=== PATIENT | female | born 1960 | race Caucasian/White ===

== ENCOUNTER 2017-09-10 08:56 | Observation (INO) | payer SELFPAY ==
[~2017-09-10] VITALS: Ht 170.2 cm; Wt 92.7 kg
[~2017-09-10 08:56] MED LIST: ASPI81TA82 PO; MECL25 PO; METO50TA PO; PLAV75TA PO; ZOCO40TA PO
[2017-09-10 09:00] VITALS: BP 208/99; PULSE 77; RESP 18; TEMP 98.5; O2SAT 99
[2017-09-10] MEDS ORDERED: NITROGLYCERIN 2% OINT 1 GM PACKET TOP ONE (09:15)
[2017-09-10] MEDS ORDERED: SODIUM CHLORIDE 0.9% FLUSH 10 ML FLUSH IVF PRN (09:15)
--- NOTE | 2017-09-10 09:15 | PD ---
HPI Chief Complaint: Chest Pain Time Seen by Provider: 09:06 Travel History International Travel<30 days: No Contact w/Intl Traveler<30days: No Traveled to known affect area: No History of Present Illness HPI This 57-year-old female is complaining of left-sided chest pain which goes down her left arm. He feels short of breath at times. She has a history of coronary artery bypass grafting in 2005 at [place]. She has had occasional chest pain since. She was at work last night and said she did not feel well she was feeling a little bit short of breath. She went home and had some pain in the left side of the chest which was found in left arm. Pain is aggravated by certain movements. She does take aspirin on a regular basis and also takes Plavix. She does not currently see a gold frame assembler. She stopped smoking about 2 years ago she was given nitroglycerin by paramedics which seemed to help the pain a bit PFSH Past Medical History Hx Anticoagulant Therapy: Yes Arthritis: No Asthma: No Blood Disorders: No Anxiety: Yes Depression: No Heart Rhythm Problems: No Cancer: No Cardiac Catheterization: Yes Cardiovascular Problems: Yes (BYPASS X4, OPEN HEART 2005) High Cholesterol: Yes Chemotherapy: No Chest Pain: Yes Congestive Heart Failure: No COPD: No Cerebrovascular Accident: Yes (TIA's) Coronary Artery Disease: Yes Diabetes: Yes Patient Takes Glucophage: No Diminished Hearing: No Endocrine: Yes Gastrointestinal Disorders: Yes Genitourinary: Yes Headaches: No Hypertension: Yes Immune Disorder: No Musculoskeletal: Yes Neurologic: No Psychiatric: No Reproductive: No Respiratory: No Immunizations Current: Yes Migraines: No Myocardial Infarction: No Radiation Therapy: No Seizures: No Sleep Apnea: No Tetanus Vaccination: > 5 Years Influenza Vaccination: Yes ?: Not Menopausal: Yes : 1 Para: 1 Past Surgical History AICD: No Arteriovenous Shunt: No Cardiac Surgery: Yes (CAGB 2005) Coronary Artery Bypass Graft: Yes Ear Surgery: No Endocrine Surgery: No Eye Surgery: No Genitourinary Surgery: No Gynecologic Surgery: No Insulin Pump: No Joint Replacement: No Oral Surgery: No Pacemaker: No Thoracic Surgery: No Other Surgery: Yes (CABG IN DECEMBER 2005.) Family History Family Myocardial Infarction: Yes (Father) Social History Alcohol Use: No Tobacco Use: No Substance Use: No Allergies-Medications (Allergen,Severity, Reaction): Coded Allergies: codeine (Unverified Allergy, Severe, VOMITING, 09/10/17) iodine (Unverified Allergy, Severe, NAUSEA/VOMITING, 09/10/17) patient states does not have a allergy to Iodine -11/16/15 Adore Bruce rn potassium iodide (Unverified Allergy, Severe, NAUSEA/VOMITING, 09/10/17) patient states does not have a allergy to Iodine -11/16/15 Adore Bruce rn povidone-iodine (Unverified Allergy, Severe, NAUSEA/VOMITING, 09/10/17) patient states does not have a allergy to Iodine -11/16/15 Adore Bruce rn shellfish derived (Unverified Allergy, Severe, N/V, 09/10/17) sodium iodide (Unverified Allergy, Severe, NAUSEA/VOMITING, 09/10/17) patient states does not have a allergy to Iodine -11/16/15 Adore Bruce rn sodium iodide (Unverified Allergy, Severe, NAUSEA/VOMITING, 09/10/17) patient states does not have a allergy to Iodine -11/16/15 Adore Bruce rn Reported Meds & Prescriptions Reported Meds & Active Scripts Active Antivert (Meclizine HCl) 25 Mg Tab 25 Mg PO Q8H PRN 10 Days Review of Systems General / Constitutional: No: Fever, Chills Eyes: No: Diploplia, Blurred Vision HENT: No: Headaches, Lightheadedness Cardiovascular: Positive: Chest Pain or Discomfort Respiratory: Positive: Shortness of Breath Gastrointestinal: No: Nausea, Vomiting Genitourinary: No: Urgency Musculoskeletal: No: Myalgias, Arthralgias Neurologic: No: Weakness Psychiatric: No: Anxiety Hematologic/Lymphatic: No: Easy Bruising Physical Exam Narrative GENERAL: Well-developed female SKIN: Focused skin assessment warm/dry. HEAD: Atraumatic. Normocephalic. EYES: Pupils equal and round. No scleral icterus. No injection or drainage. ENT: No nasal bleeding or discharge. Mucous membranes pink and moist. NECK: Trachea midline. No JVD. CARDIOVASCULAR: Regular rate and rhythm. No murmur appreciated. Some left- sided chest wall tenderness which she says she always has RESPIRATORY: No accessory muscle use. Clear to auscultation. Breath sounds equal bilaterally. GASTROINTESTINAL: Abdomen soft, non-tender, nondistended. Hepatic and splenic margins not palpable. MUSCULOSKELETAL: No obvious deformities. No clubbing. No cyanosis. No edema. NEUROLOGICAL: Awake and alert. No obvious cranial nerve deficits. Motor grossly within normal limits. Normal speech. PSYCHIATRIC: Appropriate mood and affect; insight and judgment normal. Data Data Last Documented VS Vital Signs Date Time Temp Pulse Resp B/P (MAP) Pulse Ox O2 Delivery O2 Flow Rate FiO2 09/10/17 09:45 78 14 140/58 (85) 98 Room Air 09/10/17 09:00 98.5 Orders Orders Electrocardiogram (09/10/17:12) Basic Metabolic Panel (Bmp) (09/10/17 09:12) Ckmb (Isoenzyme) Profile (09/10/17 09:12) Complete Blood Count With Diff (09/10/17:12) Magnesium (Mg) (09/10/17:12) Prothrombin Time / Inr (Pt) (09/10/17:12) Act Partial Throm Time (Ptt) (09/10/17 09:12) Troponin I (09/10/17 09:12) Chest, Single Ap (09/10/17 09:12) Ecg Monitoring (09/10/17 09:12) Iv Access Insert/Monitor (09/10/17:12) Oximetry (09/10/17 09:12) Nitroglycerin 2% Oint (Nitroglycerin 2% (09/10/17 09:15) Sodium Chloride 0.9% Flush (Ns Flush) (09/10/17 09:15) CKMB (09/10/17 09:02) CKMB% (09/10/17 09:02) Place In Observation (09/10/17 10:35) Vital Signs (Adult) Q4H (09/10/17 10:35) Cardiac Rhythm .As Directed (09/10/17 10:35) Notify Dr: Other .PRN (09/10/17 10:35) Notify . Parameters (09/10/17 10:35) Resp Oxygen Nasal Cannula (09/10/17 ) Diet Npo (09/10/17 Lunch) Ckmb (Isoenzyme) Profile (09/10/17 12:00) Ckmb (Isoenzyme) Profile (09/10/17 15:00) Troponin I (09/10/17 12:00) Troponin I (09/10/17 15:00) Electrocardiogram (09/10/17 12:00) Electrocardiogram (09/10/17 15:00) Sodium Chloride 0.9% Flush (Ns Flush) (09/10/17 10:45) Sodium Chloride 0.9% Flush (Ns Flush) (09/10/17 21:00) Acetaminophen (Tylenol) (09/10/17 10:45) Ondansetron Inj (Zofran Inj) (09/10/17 10:45) Canvas Worker / Telemetry SERGIO.Q8H (09/10/17 10:35) Vte Prophylaxis Not Indicated (09/10/17 10:35) Scd Bilateral/Knee High SERGIO.BID (09/10/17 10:35) Admit Order (Ed Use Only) (09/10/17 10:34) Labs Laboratory Tests Test 09/10/17 09:02 White Blood Count 11.7 TH/MM3 Red Blood Count 5.08 MIL/MM3 Hemoglobin 14.4 GM/DL Hematocrit 44.4 % Mean Corpuscular Volume 87.3 FL Mean Corpuscular Hemoglobin 28.3 PG Mean Corpuscular Hemoglobin Concent 32.4 % Red Cell Distribution Width 12.3 % Platelet Count 352 TH/MM3 Mean Platelet Volume 9.0 FL Neutrophils (%) (Auto) 58.6 % Lymphocytes (%) (Auto) 32.6 % Monocytes (%) (Auto) 5.0 % Eosinophils (%) (Auto) 3.1 % Basophils (%) (Auto) 0.7 % Neutrophils # (Auto) 6.8 TH/MM3 Lymphocytes # (Auto) 3.8 TH/MM3 Monocytes # (Auto) 0.6 TH/MM3 Eosinophils # (Auto) 0.4 TH/MM3 Basophils # (Auto) 0.1 TH/MM3 CBC Comment DIFF FINAL Differential Comment Prothrombin Time 10.1 SEC Prothromb Time International Ratio 1.0 RATIO Activated Partial Thromboplast Time 23.3 SEC Blood Urea Nitrogen 20 MG/DL Creatinine 0.61 MG/DL Random Glucose 245 MG/DL Calcium Level 8.9 MG/DL Magnesium Level 1.6 MG/DL Sodium Level 138 MEQ/L Potassium Level 3.6 MEQ/L Chloride Level 102 MEQ/L Carbon Dioxide Level 27.8 MEQ/L Anion Gap 8 MEQ/L Estimat Glomerular Filtration Rate 101 ML/MIN Total Creatine Kinase 134 U/L Creatine Kinase MB 2.6 NG/ML Troponin I LESS THAN 0.02 NG/ML MDM Medical Decision Making Medical Screen Exam Complete: Yes Emergency Medical Condition: Yes Medical Record Reviewed: Yes Differential Diagnosis Differential includes chest wall pain, coronary artery disease, GERD Narrative Course EKG is unchanged from previous tracings. Troponin is normal. She has been given a half-inch of nitro and reports that she is feeling well. She will be admitted to chest pain center Filipe Tovar MD Sep 10, 2017 09:15
[2017-09-10 09:22] LABS: AUTOMATED NEUTROPHIL # 6.8 TH/MM3 (1.8-7.7); BASOPHIL # 0.1 TH/MM3 (0-0.2); BASOPHIL % 0.7 % (0.0-2.0); EOSINOPHIL # 0.4 TH/MM3 (0-0.4); EOSINOPHIL % 3.1 % (0.0-4.0); HEMATOCRIT 44.4 % (35.0-46.0); HEMOGLOBIN 14.4 GM/DL (11.6-15.3); LYMPH % 32.6 % (9.0-44.0); LYMPHOCYTE # 3.8 TH/MM3 (1.0-4.8); MEAN CELL VOLUME 87.3 FL (80.0-100.0); MEAN CORPUSCULAR HEMOGLOBIN 28.3 PG (27.0-34.0); MEAN CORPUSCULAR HGB CONC 32.4 % (32.0-36.0); MONOCYTE # 0.6 TH/MM3 (0-0.9); NEUT % 58.6 % (16.0-70.0); PLATELET COUNT 352 TH/MM3 (150-450); RED BLOOD COUNT 5.08 MIL/MM3 (4.00-5.30); RED CELL DISTRIBUTION WIDTH 12.3 % (11.6-17.2); WHITE BLOOD COUNT 11.7 TH/MM3 (4.0-11.0)
[2017-09-10 09:33] LABS: PROTHROMBIN TIME - PATIENT 10.1 SEC (9.8-11.6)
[2017-09-10 09:45] VITALS: BP 140/58; PULSE 78; RESP 14; O2SAT 98
[2017-09-10 09:53] LABS: BICARBONATE 27.8 MEQ/L (21.0-32.0); BLOOD UREA NITROGEN 20 MG/DL (7-18); CALCIUM 8.9 MG/DL (8.5-10.1); GLUCOSE,RANDOM 245 MG/DL (74-106); MAGNESIUM 1.6 MG/DL (1.5-2.5)
[2017-09-10 09:57] LABS: CREATININE 0.61 MG/DL (0.50-1.00); GLOMERULAR FILTRATION RATE 101 ML/MIN (>89)
[2017-09-10 09:58] LABS: TROPONIN I LESS THAN 0.02 NG/ML (0.02-0.05)
[2017-09-10 10:02] LABS: CHLORIDE 102 MEQ/L (98-107); SODIUM (NA) 138 MEQ/L (136-145)
--- NOTE | 2017-09-10 10:14 | RADRPT ---
EXAM DATE/TIME: 09/10/2017 09:31 [facility] COMPARISON: CHEST SINGLE AP, November 16, 2015, 8:18. INDICATIONS : Chest pain. MEDICAL HISTORY : Hypertension. Diabetes mellitus type 2. SURGICAL HISTORY : CABG. ENCOUNTER: Initial ACUITY: 2 days PAIN SCORE: 8/10 LOCATION: Left chest FINDINGS: No new focal pleural or parenchymal opacities. Stable median sternotomy wires in place. Cardiomediast inal contours are within normal limits. Remainder of the exam is unchanged. CONCLUSION: 1. No acute abnormality or significant interval change. Benigno Carballo MD on September 10, 2017 at 10:11 Board Certified Radiologist. This report was verified electronically.
[2017-09-10] MEDS ORDERED: REGADENOSON INJ 0.4 MG/5 ML SYR IV ONE (10:37)
[2017-09-10] MEDS ORDERED: ACETAMINOPHEN 500 MG CPLT PO PRN (10:45)
[2017-09-10] MEDS ORDERED: SODIUM CHLORIDE 0.9% FLUSH 10 ML FLUSH IV FLUSH PRN (10:45)
[2017-09-10] MEDS ORDERED: ONDANSETRON HCL 4 MG/2 ML VIAL IV PUSH PRN (10:45)
--- NOTE | 2017-09-10 11:38 | HHI.HP ---
HPI Service [facility] Primary Care Physician Cedrick Rodríguez MD (Paul) Admission Diagnosis CHEST PAIN Diagnoses: (1) Chest pain Chief Complaint: Chest pain Travel History International Travel<30 Days: No Contact w/Intl Traveler <30 Da: No Traveled to Known Affected Are: No History of Present Illness This is a pleasant 57-year-old female patient with a known medical history of CAD and history of quadruple bypass, diabetes and hypertension who presented to the ED with complaints of chest pain. 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 She states that over the past week she has been having intermittent chest heaviness and tightness with occasional shooting pains down her left arm. Last evening while at work she did develop a left-sided chest pain once again with associated shortness of breath, was tight in nature and lasted several minutes. Patient denies any known alleviating factors, states that the pain was worse with activity. Patient denies any associated nausea, vomiting or diaphoresis. She does state that over the past week she has been using a heating pad, aspirin and using additional Plavix to help the pain with minimal relief. She denies any recent illness including fever, chills, cough, abdominal pain, nausea, vomiting, diarrhea dysuria. Patient did undergo a CABG in 2005 and was following with Dr. Garner for several years but has not seen her in the office for 2 years now. Patient states her last stress test was 2 years ago and was reportedly negative. She denies any current tobacco use , states she quit 2 years ago. Patient does have a strong familial history of cardiovascular disease. Review of Systems Constitutional: DENIES: Fatigue, Fever, Chills Eyes: DENIES: Blurred vision, Diplopia Respiratory: COMPLAINS OF: Shortness of breath, DENIES: Cough, Sputum production Cardiovascular: COMPLAINS OF: Chest pain, Palpitations Gastrointestinal: DENIES: Abdominal pain, Black stools, Bloody stools, Constipation, Diarrhea, Nausea, Vomiting Psychiatric: COMPLAINS OF: Anxiety Except as stated in HPI: all other systems reviewed are Neg Past Family Social History Past Medical History CAD with history of CABG Hypertension Diabetes History of TIA Anxiety and depression Past Surgical History Quadruple bypass in 2005 Unspecified hand surgery Reported Medications Active Active Prescriptions or Reported Medications Unobtainable Allergies: Coded Allergies: codeine (Unverified Allergy, Severe, VOMITING, 09/10/17) iodine (Unverified Allergy, Severe, NAUSEA/VOMITING, 09/10/17) patient states does not have a allergy to Iodine -11/16/15 Adore Bruce rn potassium iodide (Unverified Allergy, Severe, NAUSEA/VOMITING, 09/10/17) patient states does not have a allergy to Iodine -11/16/15 Adore Bruce rn povidone-iodine (Unverified Allergy, Severe, NAUSEA/VOMITING, 09/10/17) patient states does not have a allergy to Iodine -11/16/15 Adore Bruce rn shellfish derived (Unverified Allergy, Severe, N/V, 09/10/17) sodium iodide (Unverified Allergy, Severe, NAUSEA/VOMITING, 09/10/17) patient states does not have a allergy to Iodine -11/16/15 Adore Bruce rn sodium iodide (Unverified Allergy, Severe, NAUSEA/VOMITING, 09/10/17) patient states does not have a allergy to Iodine -11/16/15 Adore Bruce rn Active Ordered Medications Current Medications Medications (Trade) Dose Ordered Sig/David Route Start Time Stop Time Status Last Admin (NS Flush) 2 ml UNSCH PRN IV FLUSH 09/10/17 10:45 (NS Flush) 2 ml BID IV FLUSH 09/10/17 21:00 (Tylenol) 500 mg Q4H PRN PO 09/10/17 10:45 (Zofran Inj) 4 mg Q6H PRN IV PUSH 09/10/17 10:45 Family History Family history significant for cardiovascular disease. Patient had a CABG and of a stroke. Mother had a pacemaker. And brother had a history of CA and at the age of 4040 years old. Social History Patient denies any current tobacco use, states that she did quit 2 years ago. Denies any alcohol or illicit drug use. Physical Exam Vital Signs Vital Signs Date Time Temp Pulse Resp B/P (MAP) Pulse Ox O2 Delivery O2 Flow Rate FiO2 09/10/17 09:45 78 14 140/58 (85) 98 Room Air 09/10/17 09:00 98.5 77 18 208/99 (135) 99 09/10/17 09:00 99 Room Air Physical Exam GENERAL: Well-developed, obese female patient in NAD. SKIN: Warm and dry. No rash. HEAD: Normocephalic. Atraumatic. EYES: Pupils equal and round. No scleral icterus. No injection or drainage. ENT: No nasal bleeding or discharge. Mucous membranes pink and moist. NECK: Supple. Trachea midline. CARDIOVASCULAR: Regular rate and rhythm. S1, S2 noted. No murmur appreciated. Some mild chest pain to palpation RESPIRATORY: No accessory muscle use. Clear to auscultation. Breath sounds equal bilaterally. GASTROINTESTINAL: Abdomen soft, non-tender, nondistended. Normoactive bowel sounds x4. MUSCULOSKELETAL: No obvious deformities. Extremities without clubbing, cyanosis , or edema. NEUROLOGICAL: Awake and alert. No obvious cranial nerve deficits. Motor grossly within normal limits. 5/5 muscle strength in bilateral upper and lower extremities. Normal speech. PSYCHIATRIC: Appropriate mood and affect; insight and judgment normal. Laboratory Laboratory Tests Test 09/10/17 09:02 White Blood Count 11.7 Red Blood Count 5.08 Hemoglobin 14.4 Hematocrit 44.4 Mean Corpuscular Volume 87.3 Mean Corpuscular Hemoglobin 28.3 Mean Corpuscular Hemoglobin Concent 32.4 Red Cell Distribution Width 12.3 Platelet Count 352 Mean Platelet Volume 9.0 Neutrophils (%) (Auto) 58.6 Lymphocytes (%) (Auto) 32.6 Monocytes (%) (Auto) 5.0 Eosinophils (%) (Auto) 3.1 Basophils (%) (Auto) 0.7 Neutrophils # (Auto) 6.8 Lymphocytes # (Auto) 3.8 Monocytes # (Auto) 0.6 Eosinophils # (Auto) 0.4 Basophils # (Auto) 0.1 CBC Comment DIFF FINAL Differential Comment Prothrombin Time 10.1 Prothromb Time International Ratio 1.0 Activated Partial Thromboplast Time 23.3 Blood Urea Nitrogen 20 Creatinine 0.61 Random Glucose 245 Calcium Level 8.9 Magnesium Level 1.6 Sodium Level 138 Potassium Level 3.6 Chloride Level 102 Carbon Dioxide Level 27.8 Anion Gap 8 Estimat Glomerular Filtration Rate 101 Total Creatine Kinase 134 Creatine Kinase MB 2.6 Troponin I LESS THAN 0.02 Result Diagram: 09/10/1790109/10/17901 Imaging Last Impressions Chest X-Ray 09/10/17911 Signed Impressions: Service Date/Time: Sunday, September 10, 2017 09:31 - CONCLUSION: 1. No acute abnormality or significant interval change. Benigno Carballo MD Septic Shock Reassessment Septic shock perfusion: reassessment completed Caprini VTE Risk Assessment Caprini VTE Risk Assessment: No/Low Risk (score <= 1) Caprini Risk Assessment Model Point Value = 1 Point Value = 2 Point Value = 3 Point Value = 5 Age 41-60 Minor surgery BMI > 25 kg/m2 Swollen legs Varicose veins or History of unexplained or recurrent spontaneous Oral contraceptives or hormone replacement Sepsis (< 1 month) Serious lung disease, including pneumonia (< 1 month) Abnormal pulmonary function Acute myocardial infarction Congestive heart failure (< 1 month) History of inflammatory bowel disease Medical patient at bed rest Age 61-74 Arthroscopic surgery Major open surgery (> 45 min) Laparoscopic surgery (> 45 min) Malignancy Confined to bed (> 72 hours) Immobilizing plaster cast Central venous access Age >= 75 History of VTE Family history of VTE Factor V Leiden Prothrombin [id number] Lupus anticoagulant Anticardiolipin antibodies Elevated serum homocysteine Heparin-induced thrombocytopenia Other congenital or acquired thrombophilia Stroke (< 1 month) Elective arthroplasty Hip, pelvis, or leg fracture Acute spinal cord injury (< 1 month) Prophylaxis Regimen Total Risk Factor Score Risk Level Prophylaxis Regimen 0-1 Low Early ambulation 2 Moderate Order ONE of the following: *Sequential Compression Device (SCD) *Heparin 5000 units SQ BID 3-4 Higher Order ONE of the following medications: *Heparin 5000 units SQ TID *Enoxaparin/Lovenox 40 mg SQ daily (WT < 150 kg, CrCl > 30 mL/min) *Enoxaparin/Lovenox 30 mg SQ daily (WT < 150 kg, CrCl > 10-29 mL/min) *Enoxaparin/Lovenox 30 mg SQ BID (WT < 150 kg, CrCl > 30 mL/min) AND/OR *Sequential Compression Device (SCD) 5 or more Highest Order ONE of the following medications: *Heparin 5000 units SQ TID (Preferred with Epidurals) *Enoxaparin/Lovenox 40 mg SQ daily (WT < 150 kg, CrCl > 30 mL/min) *Enoxaparin/Lovenox 30 mg SQ daily (WT < 150 kg, CrCl > 10-29 mL/min) *Enoxaparin/Lovenox 30 mg SQ BID (WT < 150 kg, CrCl > 30 mL/min) AND *Sequential Compression Device (SCD) Assessment and Plan Problem List: (1) Chest pain ICD Code: R07.9 - Chest pain Status: Acute (2) DM (diabetes mellitus) ICD Code: E11.9 - DM (diabetes mellitus) Status: Acute (3) CAD (coronary artery disease) ICD Code: I25.10 - CAD (coronary artery disease) Status: Acute (4) Hyperlipidemia ICD Code: E78.5 - Hyperlipidemia Status: Acute Assessment and Plan This is a pleasant 57-year-old female patient with a known medical history of CAD and history of quadruple bypass, diabetes and hypertension who presented to the ED with complaints of chest pain. 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 Chest pain rule out ACS versus musculoskeletal cause - Patient has been admitted to the observation chest pain center unit. - Serial EKGs and serial troponins have been ordered for ruling out ACS purposes. Initial troponin flat. Continue to monitor trend. - EKG reviewed showing sinus rhythm with first-degree AV block, no arrhythmias, no ST changes to indicate any ischemia. - Chest x-ray reviewed, no acute cardiopulmonary disease. CBC and BMP essentially unremarkable. - Chest pain has subsided, now a 1 out of 10 on pain scale. Nitroglycerin sublingual available. - Supplemental O2 as needed, patient comfortable on room air. Supportive care. - If ACS ruled out, patient will undergo a nuclear cardiac stress test to further rule out any ischemia. Patient is stable at this time and agreeable to the plan. Hypertension, chronic: Patient presented with significantly elevated blood pressure, systolic in the 200s. We will continue home medications. Nitroglycerin patch applied. Monitor BP trend. CAD with history of CABG: We will continue home medications when obtained from pharmacy. Patient has been on Plavix. Type 2 diabetes mellitus, chronic: Patient takes insulin at home. Will place on Accu-Chek before meals at bedtime, sliding scale, cover as needed. Random glucose is elevated. Patient states she does follow with PCP who is managing and her hemoglobin A1c has been elevated. DVT prophylaxis: SCDs. Patient underwent a cardiac nuclear stress test, results reviewed showing EF 70% . With no evidence of stress induced ischemia. Intact wall motion and thickening without hypokinetic or dyskinetic segments. Low Risk. Patient has been notified of results. Patient will be allowed to eat. Chest pain has resolved. Encouraged to return to ED if symptoms persist or worsen. Patient also encouraged to keep a blood pressure diary, she presented with elevated BP, may need adjustment in her medications. BP is stabilized upon DC. Encouraged to follow up with her PCP within 1 month. Patient is stable at this time and agreeable to the plan. Candi Clarke Sep 10, 2017 11:38
[2017-09-10] MEDS ORDERED: HYDR12.57 PO (12:23)
[2017-09-10] MEDS ORDERED: LISI-515 PO (12:23)
[2017-09-10] MEDS ORDERED: PLAV75TA29 PO (12:23)
[2017-09-10] MEDS ORDERED: GLIP5TAB8 PO (12:23)
[2017-09-10] MEDS ORDERED: METO25TA3 PO (12:23)
[2017-09-10] MEDS ORDERED: ASPI-516 CHEW (12:24)
[2017-09-10 12:35] LABS: TROPONIN I LESS THAN 0.02 NG/ML (0.02-0.05)
[2017-09-10 12:45] VITALS: BP 108/56; PULSE 68; RESP 16; TEMP 96.2; O2SAT 96
--- NOTE | 2017-09-10 15:04 | EKG ---
Date Performed: 09/10/2017 Time Performed: 11:57:53 PTAGE: 57 years EKG: Sinus rhythm WITH FIRST DEGREE AV BLOCK POSSIBLE RIGHT VENTRICULAR CONDUCTION DELAY NONSPECIFIC T-WAVE ABNORMALIT Y ABNORMAL ECG No significant change PREVIOUS TRACING : 09/10/2017 08.58 DOCTOR: Mainor Romero Interpretating Date/Time 09/10/2017 15:03:48
--- NOTE | 2017-09-10 15:05 | EKG ---
Date Performed: 09/10/2017 Time Performed: 08:58:40 PTAGE: 57 years EKG: Sinus rhythm WITH FIRST DEGREE AV BLOCK NONSPECIFIC T-WAVE ABNORMALITY ABNORMAL ECG No change PREVIOUS TRACING : 01/20/2016 02.15 DOCTOR: Mainor Romero Interpretating Date/Time 09/10/2017 15:04:37
--- NOTE | 2017-09-10 15:13 | TR ---
Date Performed: 09/10/2017 Time Performed: 14:16:12 DOCTOR: Mainor Romero DRUG LIST: CLINICAL HISTORY: REASON FOR TEST: Chest pain REASON FOR ENDING: OBSERVATION: CONCLUSION: Lexiscan stress test was performed under standard four minute protocol. Radionuclide was injected one minute prior to ending the test. No electrocardiographic abormalities were present to suggest ischemia. Nuclear imaging and interpretation are pending. COMMENTS:
--- NOTE | 2017-09-10 15:26 | RADRPT ---
EXAM DATE/TIME: 09/10/2017 13:40 [facility] COMPARISON: MYOCARDIAL PERF PHARM SPECT, GATED W/EF, November 16, 2015, 13:45. INDICATIONS : Left chest pain radiating to the left arm with dyspnea. Angina. DOSE: 26.1 mCi Tc99m Myoview at stress. 8.3 mCi Tc99m Myoview at rest. 0.4 mg Lexiscan STRESS SYMPTOMS: Dyspnea and neck tightness. EJECTION FRACTION: > 70% MEDICAL HISTORY : Hypercholesterolemia. Hypertension. Stroke. SURGICAL HISTORY : CABG Coronary catherization. ENCOUNTER: Initial ACUITY: 1 day PAIN SCALE: 7/10 LOCATION: Left chest TECHNIQUE: The patient underwent pharmacologic stress with infusion of prescribed dose. Continuous ECG tracing was monitored during stress. Gated SPECT imaging was performed after stress and conventional SPECT i maging was performed at rest. The examination was performed on a SPECT/CT scanner, both attenuation and non-corrected datasets were reviewed. FINDINGS: DISTRIBUTION: The maximum perfused segment at stress is in the basal lateral wall. PERFUSION STUDY: The pattern of perfusion at stress is within normal limits with regional variations lesion with in 25 %. The pattern of perfusion at stress and rest is unchanged. The summed stress score is zero. GATED STUDY: There is intact wall motion and thickening without hypokinetic or dyskinetic segments. CONCLUSION: 1. No evidence of stress-induced ischemia. 2. Intact wall motion with a greater than 70% ejection fraction. RISK CATEGORY: Low (<1% Annual Mortality Rate) Abdoul Mercer MD on September 10, 2017 at 15:20 Board Certified Radiologist. This report was verified electronically.
--- NOTE | 2017-09-10 15:37 | HHI.DCPOC ---
Discharge Care Plan Diagnosis: (1) Chest pain (2) CAD (coronary artery disease) Goals to Promote Your Health * To prevent worsening of your condition and complications * To maintain your health at the optimal level Directions to Meet Your Goals Take your medications as prescribed Follow your dietary instruction Follow activity as directed Keep your appointments as scheduled Take your immunizations and boosters as scheduled If your symptoms worsen call your PCP, if no PCP go to Urgent Care Center or Emergency Room Smoking is Dangerous to Your Health. Avoid second hand smoke Call the 24-hour hour crisis hotline for domestic abuse at Candi Clarke Sep 10, 2017 15:37
[2017-09-10] MEDS ORDERED: SODIUM CHLORIDE 0.9% FLUSH 10 ML FLUSH IV FLUSH SCH (21:00)
[2017-09-10] MEDS ORDERED: CLOPIDOGREL 75 MG TAB PO SCH (21:00)
[2017-09-11] MEDS ORDERED: ASPIRIN 81 MG CHEW TAB CHEW SCH (09:00)
[2017-09-11] MEDS ORDERED: METOPROLOL TARTRATE 25 MG TAB PO SCH (09:00)
[2017-09-11] MEDS ORDERED: HYDROCHLOROTHIAZIDE 12.5 MG CAP PO SCH (09:00)
[2017-09-11] MEDS ORDERED: LISINOPRIL 20 MG TAB PO SCH (09:00)
== END 2017-09-10 17:10 | disposition home or self-care (01) ==
LOC: PHED 08:56 → PHEDA 10:36 → PH3A 11:35
PROVIDERS: ADMIT Hospitalist; ATTEND Hospitalist
DX: R07.89 Other chest pain (principal); R06.02 Shortness of breath; I25.10 Atherosclerotic heart disease of native coronary artery without angina pectoris; E11.9 Type 2 diabetes mellitus without complications; E78.00 Pure hypercholesterolemia, unspecified; I10 Essential (primary) hypertension; I44.0 Atrioventricular block, first degree; F41.9 Anxiety disorder, unspecified; F32.9 Major depressive disorder, single episode, unspecified; Z87.891 Personal history of nicotine dependence; Z95.1 Presence of aortocoronary bypass graft; Z79.4 Long term (current) use of insulin; Z79.82 Long term (current) use of aspirin; Z79.02 Long term (current) use of antithrombotics/antiplatelets; Z86.73 Personal history of transient ischemic attack (TIA), and cerebral infarction without residual deficits
CPT/HCPCS: 71045; 78452; 80048; 82550; 82552; 83735; 84484; 85025; 85610; 85730; 93005; 93017; 99285; A9502; G0378; J2785

== ENCOUNTER 2017-12-01 23:09 | Inpatient (IN) | payer OTHER ==
[~2017-12-01] VITALS: Ht 167.6 cm; Wt 100.5 kg
[~2017-12-01 23:09] MED LIST changes: +ASPI-516 CHEW; -ASPI81TA82 PO; +GLIP5TAB8 PO; +HYDR12.57 PO; +LISI-515 PO; -MECL25 PO; +METO25TA3 PO; -METO50TA PO; -PLAV75TA PO; +PLAV75TA29 PO; -ZOCO40TA PO
[2017-12-01 23:15] VITALS: BP 225/85; PULSE 73; RESP 20; TEMP 98.3; O2SAT 97
[2017-12-02] VITALS (20 sets, daily range): BP systolic 136–190; BP diastolic 63–80; PULSE 56–85; RESP 17–20; TEMP 97.6–98.5; O2SAT 92–97
--- NOTE | 2017-12-02 00:33 | PD ---
HPI Chief Complaint: Chest Pain Time Seen by Provider: 00:04 Travel History International Travel<30 days: No Contact w/Intl Traveler<30days: No Traveled to known affect area: No History of Present Illness HPI 57-year-old female complains chest pain. Patient states that the chest pain started 2 days ago. Patient states the pain aching pain localized to left chest. Patient denies any pain radiation. Patient states that she has nausea but no diaphoresis. Patient states the pain is worse with walking. Patient states the pain is worse with deep breathing. Patient denies any coughing congestion fever chills. Patient has history of CAD status post CABG in 2005. Patient has history hypertension, diabetes, lipidemia. Patient is a non- smoker. Patient was admitted to [facility] September 10, 2017 for chest pain. Myocardial perfusion pharmacology stress test done at that time showed no evidence of stress-induced ischemia. Patient states that the chest pain much better now when she is resting in bed. On a scale of 1-10 the pain is a 5. Patient was seen by personal physician today and had EKG and cardiac enzymes done. Patient was advised that the EKG was abnormal. Patient was advised that her cardiac enzyme was abnormal. Patient was advised to go to ED for evaluation. Patient was seen by Dr. Garner, field care advocate, in the past however had not seen her over the past several years. PFSH Past Medical History Hx Anticoagulant Therapy: Yes Arthritis: No Asthma: No Blood Disorders: No Anxiety: Yes Depression: No Heart Rhythm Problems: No Cancer: No Cardiac Catheterization: Yes Cardiovascular Problems: Yes (BYPASS X4, OPEN HEART 2005) High Cholesterol: Yes Chemotherapy: No Chest Pain: Yes Congestive Heart Failure: No COPD: No Cerebrovascular Accident: Yes (TIA's) Coronary Artery Disease: Yes Diabetes: Yes Patient Takes Glucophage: No Diminished Hearing: No Endocrine: Yes Gastrointestinal Disorders: Yes Genitourinary: Yes Headaches: No Heparin Induced Thrombocytopen: No Hypertension: Yes Immune Disorder: No Implanted Vascular Access Dvce: No Musculoskeletal: Yes Neurologic: Yes Psychiatric: No Reproductive: No Respiratory: Yes Immunizations Current: Yes Migraines: No Myocardial Infarction: No Radiation Therapy: No Seizures: No Sleep Apnea: No Tetanus Vaccination: > 5 Years Influenza Vaccination: Yes Menopausal: Yes : 1 Para: 1 Past Surgical History AICD: No Arteriovenous Shunt: No Cardiac Surgery: Yes (CAGB 2005) Coronary Artery Bypass Graft: Yes Ear Surgery: No Endocrine Surgery: No Eye Surgery: No Genitourinary Surgery: No Gynecologic Surgery: No Insulin Pump: No Joint Replacement: No Neurologic Surgery: No Oral Surgery: No Pacemaker: No Thoracic Surgery: No Other Surgery: Yes (CABG IN DECEMBER 2005.) Family History Family Myocardial Infarction: Yes (FATHER) Social History Alcohol Use: No Tobacco Use: No Substance Use: No Allergies-Medications (Allergen,Severity, Reaction): Coded Allergies: codeine (Unverified Allergy, Severe, VOMITING, 12/01/17) iodine (Unverified Allergy, Severe, NAUSEA/VOMITING, 12/01/17) patient states does not have a allergy to Iodine -11/16/15 Adore Bruce rn potassium iodide (Unverified Allergy, Severe, NAUSEA/VOMITING, 12/01/17) patient states does not have a allergy to Iodine -11/16/15 Adore Bruce rn povidone-iodine (Unverified Allergy, Severe, NAUSEA/VOMITING, 12/01/17) patient states does not have a allergy to Iodine -11/16/15 Adore Bruce rn shellfish derived (Unverified Allergy, Severe, N/V, 12/01/17) sodium iodide (Unverified Allergy, Severe, NAUSEA/VOMITING, 12/01/17) patient states does not have a allergy to Iodine -11/16/15 Adore Bruce rn sodium iodide (Unverified Allergy, Severe, NAUSEA/VOMITING, 12/01/17) patient states does not have a allergy to Iodine -11/16/15 Adore Bruce rn Reported Meds & Prescriptions Reported Meds & Active Scripts Active Reported Aspirin 81 Mg Chew 81 Mg CHEW DAILY Hydrochlorothiazide 12.5 Mg Cap 12.5 Mg PO DAILY Plavix (Clopidogrel Bisulfate) 75 Mg Tab 75 Mg PO HS Metoprolol Tartrate 25 Mg Tab 25 Mg PO DAILY Lisinopril 20 Mg Tab 20 Mg PO DAILY Glipizide 5 Mg Tab 5 Mg PO BIDAC Take 30 minutes before a meal Review of Systems General / Constitutional: No: Fever Eyes: No: Visual changes HENT: No: Headaches Cardiovascular: Positive: Chest Pain or Discomfort Respiratory: No: Shortness of Breath Gastrointestinal: No: Abdominal Pain Genitourinary: No: Dysuria Musculoskeletal: No: Pain Skin: No Rash Neurologic: No: Weakness Psychiatric: No: Depression Endocrine: No: Polydipsia Hematologic/Lymphatic: No: Easy Bruising Physical Exam Narrative GENERAL: Well-nourished, well-developed patient. SKIN: Focused skin assessment warm/dry. HEAD: Normocephalic. EYES: No scleral icterus. No injection or drainage. NECK: Supple, trachea midline. No JVD or lymphadenopathy. CARDIOVASCULAR: Regular rate and rhythm without murmurs, gallops, or rubs. RESPIRATORY: Breath sounds equal bilaterally. No accessory muscle use. GASTROINTESTINAL: Abdomen soft, non-tender, nondistended. MUSCULOSKELETAL: No cyanosis, or edema. BACK: Nontender without obvious deformity. No CVA tenderness. Neurologic exam normal. Data Data Last Documented VS Vital Signs Date Time Temp Pulse Resp B/P (MAP) Pulse Ox O2 Delivery O2 Flow Rate FiO2 12/01/17 23:15 98.3 73 20 225/85 (131) 97 Orders Orders Electrocardiogram (12/02/17 00:27) Complete Blood Count With Diff (12/02/17:) Comprehensive Metabolic Panel (12/02/17 00:) Creatine Kinase (Cpk) (12/02/17 00:27) Troponin I (12/02/17 00:27) Prothrombin Time / Inr (Pt) (12/02/17:) Act Partial Throm Time (Ptt) (12/02/17 00:27) Chest, Single Ap (12/02/17 00:27) Iv Access Insert/Monitor (12/02/17:) Ecg Monitoring (12/02/17 00:) Oximetry (12/02/17 00:27) Heparin Inj (Heparin Inj) (12/02/17 02:15) Heparin-D5w 25,000 U/250 Ml (Heparin-D5w (12/02/17 02:15) Nitroglycerin 2% Oint (Nitroglycerin 2% (12/02/17 02:15) Admit Order (Ed Use Only) (12/02/17 02:18) Labs Laboratory Tests Test 12/02/17 00:30 White Blood Count 9.6 TH/MM3 Red Blood Count 4.62 MIL/MM3 Hemoglobin 13.6 GM/DL Hematocrit 40.9 % Mean Corpuscular Volume 88.5 FL Mean Corpuscular Hemoglobin 29.5 PG Mean Corpuscular Hemoglobin Concent 33.3 % Red Cell Distribution Width 13.2 % Platelet Count 296 TH/MM3 Mean Platelet Volume 8.7 FL Neutrophils (%) (Auto) 58.3 % Lymphocytes (%) (Auto) 31.0 % Monocytes (%) (Auto) 7.6 % Eosinophils (%) (Auto) 2.6 % Basophils (%) (Auto) 0.5 % Neutrophils # (Auto) 5.6 TH/MM3 Lymphocytes # (Auto) 3.0 TH/MM3 Monocytes # (Auto) 0.7 TH/MM3 Eosinophils # (Auto) 0.2 TH/MM3 Basophils # (Auto) 0.0 TH/MM3 CBC Comment DIFF FINAL Differential Comment Prothrombin Time 9.8 SEC Prothromb Time International Ratio 1.0 RATIO Activated Partial Thromboplast Time 24.7 SEC Blood Urea Nitrogen 15 MG/DL Creatinine 0.70 MG/DL Random Glucose 245 MG/DL Total Protein 7.0 GM/DL Albumin 2.9 GM/DL Calcium Level 8.4 MG/DL Alkaline Phosphatase 84 U/L Aspartate Amino Transf (AST/SGOT) 17 U/L Alanine Aminotransferase (ALT/SGPT) 42 U/L Total Bilirubin 0.2 MG/DL Sodium Level 141 MEQ/L Potassium Level 3.7 MEQ/L Chloride Level 105 MEQ/L Carbon Dioxide Level 26.6 MEQ/L Anion Gap 9 MEQ/L Estimat Glomerular Filtration Rate 86 ML/MIN Total Creatine Kinase 89 U/L Troponin I 0.11 NG/ML MDM Medical Decision Making Medical Screen Exam Complete: Yes Emergency Medical Condition: Yes Interpretation(s) Last Impressions Chest X-Ray 12/02/17 0027 Signed Impressions: CONCLUSION: No acute cardiopulmonary process. 1:54 AM. EKG shows sinus rhythm nonspecific ST-T wave change. Unchanged from previous EKG. CBC within normal limits. Glucose 245. Troponin 0.11. Differential Diagnosis Differential diagnosis include musculoskeletal, angina, MN, PE, pneumothorax. Narrative Course 49-year-old female with chest pain. History of CAD status post CABG. patient is on Plavix. Nitropaste 1 inch in chest wall. Heparin bolus and drip started. Diagnosis Primary Impression: NSTEMI (non-ST elevated myocardial infarction) Admitting Information Admitting Physician Requests: Admit Skip Watters MD Dec 02, 2017 00:33
[2017-12-02 01:04] LABS: AUTOMATED NEUTROPHIL # 5.6 TH/MM3 (1.8-7.7); BASOPHIL % 0.5 % (0.0-2.0); EOSINOPHIL # 0.2 TH/MM3 (0-0.4); EOSINOPHIL % 2.6 % (0.0-4.0); HEMATOCRIT 40.9 % (35.0-46.0); HEMOGLOBIN 13.6 GM/DL (11.6-15.3); MEAN CELL VOLUME 88.5 FL (80.0-100.0); MEAN CORPUSCULAR HEMOGLOBIN 29.5 PG (27.0-34.0); MEAN CORPUSCULAR HGB CONC 33.3 % (32.0-36.0); MEAN PLATELET VOLUME 8.7 FL (7.0-11.0); MONO % 7.6 % (0.0-8.0); MONOCYTE # 0.7 TH/MM3 (0-0.9); NEUT % 58.3 % (16.0-70.0); PLATELET COUNT 296 TH/MM3 (150-450); RED BLOOD COUNT 4.62 MIL/MM3 (4.00-5.30); RED CELL DISTRIBUTION WIDTH 13.2 % (11.6-17.2); WHITE BLOOD COUNT 9.6 TH/MM3 (4.0-11.0)
--- NOTE | 2017-12-02 01:10 | RADRPT ---
EXAM DATE: 12/02/2017 12:54 AM EDT AGE/SEX: 57 years / Female INDICATIONS: Left sided chest pain. CLINICAL DATA: This is the patient's initial encounter. Patient reports that signs and symptoms have been present for 3 days and indicates a pain score of 3/10. MEDICAL/SURGICAL HISTORY: Diabetes mellitus type II. Hypertension. CABG. COMPARISON: [facility], CHEST SINGLE AP, 09/10/2017. . FINDINGS: The patient is status post sternotomy. The heart size is normal. The lungs are clear. CONCLUSION: No acute cardiopulmonary process. Electronically signed by: Dusty Armijo MD 12/02/2017 1:08 AM EDT
[2017-12-02 01:15] LABS: PROTHROMBIN TIME - PATIENT 9.8 SEC (9.8-11.6)
[2017-12-02 01:26] LABS: ALBUMIN 2.9 GM/DL (3.4-5.0); ALT (GPT) 42 U/L (10-53); AST (GOT) 17 U/L (15-37); BICARBONATE 26.6 MEQ/L (21.0-32.0); BLOOD UREA NITROGEN 15 MG/DL (7-18); CALCIUM 8.4 MG/DL (8.5-10.1); CHLORIDE 105 MEQ/L (98-107); GLOMERULAR FILTRATION RATE 86 ML/MIN (>89); GLUCOSE,RANDOM 245 MG/DL (74-106); SODIUM (NA) 141 MEQ/L (136-145)
[2017-12-02 01:29] LABS: ALKALINE PHOSPHATASE 84 U/L (45-117); TOTAL BILIRUBIN ADULT 0.2 MG/DL (0.2-1.0); TROPONIN I 0.11 NG/ML (0.02-0.05)
[2017-12-02] MEDS ORDERED: NITROGLYCERIN 2% OINT 1 GM PACKET TOPICAL ONE (02:15)
[2017-12-02] MEDS ORDERED: HEPARIN SODIUM - IV 10,000 UNITS/10 ML VIAL IV ONE (02:15)
[2017-12-02] MEDS ORDERED: HEPARIN-D5W 25,000 U/250 ML 250 ML IV PRN (02:15)
[2017-12-02] MEDS ORDERED: DEXTROSE 50% IN WATER 50 ML VIAL(D50) IV PUSH PRN ×2 (02:45→13:45)
[2017-12-02] MEDS ORDERED: ACETAMINOPHEN/HYDROcodone 325 MG/7.5 MG TAB PO PRN (02:45)
[2017-12-02] MEDS ORDERED: GLUCAGON 1 MG/ML VIAL OTHER PRN ×2 (02:45→13:45)
[2017-12-02] MEDS ORDERED: SODIUM CHLORIDE 0.9% FLUSH 10 ML FLUSH IV FLUSH PRN ×2 (02:45→15:45)
--- NOTE | 2017-12-02 02:47 | HHI.HP ---
HPI [facility] Primary Care Physician Cedrick Rodríguez MD (Paul) Admission Diagnosis NSTEMI Diagnoses: Travel History International Travel<30 Days: No Contact w/Intl Traveler <30 Da: No Traveled to Known Affected Are: No History of Present Illness 80-year-old female with a past medical history significant for coronary artery disease, diabetes mellitus, hypertension and hyperlipidemia presents to the emergency department for evaluation of elevated troponin. The patient reports she has been feeling nauseated with left-sided chest pain that radiates down her left arm since Wednesday. She saw her primary care physician earlier yesterday who did an EKG and ordered lab work for her. The patient completed the lab work and then went to work when she was called by the nurse practitioner stating that her troponin was elevated that she needed to come to the emergency department for further evaluation. The patient continues to have chest pain that is worse with movement that radiates down the left arm. She denies any shortness of breath. Intermittent nausea. No vomiting/diarrhea/ abdominal pain. No fevers/chills. No lateralizing signs/symptoms. Review of Systems Except as stated in HPI: all other systems reviewed are Neg Past Family Social History Past Medical History Coronary artery disease Diabetes mellitus Hypertension Hyperlipidemia Past Surgical History CABG 4 Right hand trigger finger release Reported Medications Reported Meds & Active Scripts Active Reported Aspirin 81 Mg Chew 81 Mg CHEW DAILY Hydrochlorothiazide 12.5 Mg Cap 12.5 Mg PO DAILY Plavix (Clopidogrel Bisulfate) 75 Mg Tab 75 Mg PO HS Metoprolol Tartrate 25 Mg Tab 25 Mg PO DAILY Lisinopril 20 Mg Tab 20 Mg PO DAILY Glipizide 5 Mg Tab 5 Mg PO BIDAC Take 30 minutes before a meal Allergies: Coded Allergies: codeine (Unverified Allergy, Severe, VOMITING, 12/01/17) iodine (Unverified Allergy, Severe, NAUSEA/VOMITING, 12/01/17) patient states does not have a allergy to Iodine -11/16/15 Adore Bruce, rn potassium iodide (Unverified Allergy, Severe, NAUSEA/VOMITING, 12/01/17) patient states does not have a allergy to Iodine -11/16/15 Adore Bruce rn povidone-iodine (Unverified Allergy, Severe, NAUSEA/VOMITING, 12/01/17) patient states does not have a allergy to Iodine -11/16/15 Adore Bruce rn shellfish derived (Unverified Allergy, Severe, N/V, 12/01/17) sodium iodide (Unverified Allergy, Severe, NAUSEA/VOMITING, 12/01/17) patient states does not have a allergy to Iodine -11/16/15 Adore Bruce rn sodium iodide (Unverified Allergy, Severe, NAUSEA/VOMITING, 12/01/17) patient states does not have a allergy to Iodine -11/16/15 Adore Bruce rn Family History Both parents with coronary artery disease and diabetes mellitus Social History Negative for alcohol, tobacco and illicit drug Physical Exam Vital Signs Vital Signs Date Time Temp Pulse Resp B/P (MAP) Pulse Ox O2 Delivery O2 Flow Rate FiO2 12/01/17 23:15 98.3 73 20 225/85 (131) 97 Physical Exam GENERAL: Obese, female sitting up in bed SKIN: No rashes, ecchymoses or lesions. Cool and dry. HEAD: Atraumatic. Normocephalic. No temporal or scalp tenderness. EYES: Pupils equal round and reactive. Extraocular motions intact. No scleral icterus. No injection or drainage. ENT: Nose without bleeding, purulent drainage or septal hematoma. Throat without erythema, tonsillar hypertrophy or exudate. Uvula midline. Airway patent. NECK: Trachea midline. No JVD or lymphadenopathy. Supple, nontender, no meningeal signs. CARDIOVASCULAR: Regular rate and rhythm without murmurs, gallops, or rubs. RESPIRATORY: Clear to auscultation. Breath sounds equal bilaterally. No wheezes , rales, or rhonchi. GASTROINTESTINAL: Abdomen soft, non-tender, nondistended. No hepato-splenomegaly , or palpable masses. No guarding. MUSCULOSKELETAL: Extremities without clubbing, cyanosis, or edema. No joint tenderness, effusion, or edema noted. No calf tenderness. NEUROLOGICAL: Awake and alert. Cranial nerves II through XII intact. Motor and sensory grossly within normal limits. Normal speech. Laboratory Laboratory Tests Test 12/02/17 00:30 White Blood Count 9.6 Red Blood Count 4.62 Hemoglobin 13.6 Hematocrit 40.9 Mean Corpuscular Volume 88.5 Mean Corpuscular Hemoglobin 29.5 Mean Corpuscular Hemoglobin Concent 33.3 Red Cell Distribution Width 13.2 Platelet Count 296 Mean Platelet Volume 8.7 Neutrophils (%) (Auto) 58.3 Lymphocytes (%) (Auto) 31.0 Monocytes (%) (Auto) 7.6 Eosinophils (%) (Auto) 2.6 Basophils (%) (Auto) 0.5 Neutrophils # (Auto) 5.6 Lymphocytes # (Auto) 3.0 Monocytes # (Auto) 0.7 Eosinophils # (Auto) 0.2 Basophils # (Auto) 0.0 CBC Comment DIFF FINAL Differential Comment Prothrombin Time 9.8 Prothromb Time International Ratio 1.0 Activated Partial Thromboplast Time 24.7 Blood Urea Nitrogen 15 Creatinine 0.70 Random Glucose 245 Total Protein 7.0 Albumin 2.9 Calcium Level 8.4 Alkaline Phosphatase 84 Aspartate Amino Transf (AST/SGOT) 17 Alanine Aminotransferase (ALT/SGPT) 42 Total Bilirubin 0.2 Sodium Level 141 Potassium Level 3.7 Chloride Level 105 Carbon Dioxide Level 26.6 Anion Gap 9 Estimat Glomerular Filtration Rate 86 Total Creatine Kinase 89 Troponin I 0.11 Result Diagram: 12/02/172912/02/1729 Caprini VTE Risk Assessment Caprini VTE Risk Assessment: No/Low Risk (score <= 1) Caprini Risk Assessment Model Point Value = 1 Point Value = 2 Point Value = 3 Point Value = 5 Age 41-60 Minor surgery BMI > 25 kg/m2 Swollen legs Varicose veins or History of unexplained or recurrent spontaneous Oral contraceptives or hormone replacement Sepsis (< 1 month) Serious lung disease, including pneumonia (< 1 month) Abnormal pulmonary function Acute myocardial infarction Congestive heart failure (< 1 month) History of inflammatory bowel disease Medical patient at bed rest Age 61-74 Arthroscopic surgery Major open surgery (> 45 min) Laparoscopic surgery (> 45 min) Malignancy Confined to bed (> 72 hours) Immobilizing plaster cast Central venous access Age >= 75 History of VTE Family history of VTE Factor V Leiden Prothrombin [id number] Lupus anticoagulant Anticardiolipin antibodies Elevated serum homocysteine Heparin-induced thrombocytopenia Other congenital or acquired thrombophilia Stroke (< 1 month) Elective arthroplasty Hip, pelvis, or leg fracture Acute spinal cord injury (< 1 month) Prophylaxis Regimen Total Risk Factor Score Risk Level Prophylaxis Regimen 0-1 Low Early ambulation 2 Moderate Order ONE of the following: *Sequential Compression Device (SCD) *Heparin 5000 units SQ BID 3-4 Higher Order ONE of the following medications: *Heparin 5000 units SQ TID *Enoxaparin/Lovenox 40 mg SQ daily (WT < 150 kg, CrCl > 30 mL/min) *Enoxaparin/Lovenox 30 mg SQ daily (WT < 150 kg, CrCl > 10-29 mL/min) *Enoxaparin/Lovenox 30 mg SQ BID (WT < 150 kg, CrCl > 30 mL/min) AND/OR *Sequential Compression Device (SCD) 5 or more Highest Order ONE of the following medications: *Heparin 5000 units SQ TID (Preferred with Epidurals) *Enoxaparin/Lovenox 40 mg SQ daily (WT < 150 kg, CrCl > 30 mL/min) *Enoxaparin/Lovenox 30 mg SQ daily (WT < 150 kg, CrCl > 10-29 mL/min) *Enoxaparin/Lovenox 30 mg SQ BID (WT < 150 kg, CrCl > 30 mL/min) AND *Sequential Compression Device (SCD) Assessment and Plan Assessment and Plan Assessment/plan: 1. NSTEMI/CAD EKG shows normal sinus rhythm with nonspecific ST-T wave changes without ST segment elevation or depression, personally reviewed Initial troponin 0 0.11 Heparin bolus and drip Cardiology consulted, appreciate recommendations Continue aspirin and Plavix once medication reconciliation complete 2. Diabetes mellitus Holding home glipizide Sliding-scale insulin Monitor blood glucose 3. Hypertension/hyperlipidemia Continue home medications once reconciled FEN N.p.o. Electrolytes: Monitor and replete as needed NS at 100 cc/hour Heparin drip Physician Certification 2 Midnight Certification Type: Admission for Inpatient Services Order for Inpatient Services The services are ordered in accordance with Medicare regulations or non- Medicare payer requirements, as applicable. In the case of services not specified as inpatient-only, they are appropriately provided as inpatient services in accordance with the 2-midnight benchmark. Estimated LOS (days): 2 2 days is the estimated time the patient will need to remain in the hospital, assuming treatment plan goals are met and no additional complications. Post-Hospital Plan: Not yet determined Alba Higuera MD Dec 02, 2017 02:47
[2017-12-02] MEDS: SODIUM CHLOR 0.9% 1000 ML INJ 1,000 ML IV SCH ×2 (03:12→14:04)
[2017-12-02] MEDS: INSULIN ASPART SUPPLEMENTAL SCALE SQ SCH ×4 (07:50→20:57)
[2017-12-02] MEDS ORDERED: ASPIRIN 325 MG TAB PO SCH (09:00)
[2017-12-02] MEDS ORDERED: SODIUM CHLORIDE 0.9% FLUSH 10 ML FLUSH IV FLUSH SCH (09:00)
[2017-12-02 10:14] LABS: TROPONIN I 0.12 NG/ML (0.02-0.05)
[2017-12-02] MEDS: MORPHINE SULFATE 8 MG/ML INJ IV PUSH PRN ×2 (13:41→21:17)
[2017-12-02] MEDS ORDERED: NITROGLYCERIN 2% OINT 1 GM PACKET TOPICAL SCH (13:45)
[2017-12-02] MEDS ORDERED: NITROGLYCERIN 0.4 MG SL 25 TABS/BTL SL PRN (13:45)
[2017-12-02] MEDS ORDERED: cloNIDine HCL 0.1 MG TAB PO PRN (13:45)
[2017-12-02 14:07] LABS: TROPONIN I 0.13 NG/ML (0.02-0.05)
[2017-12-02] MEDS ORDERED: METOPROLOL TARTRATE 25 MG TAB PO SCH (14:15)
[2017-12-02] MEDS ORDERED: methylPREDNISolone SOD SUCC 125 MG/2 ML VIAL IV ONE (14:15)
[2017-12-02] MEDS: LISINOPRIL 20 MG TAB PO SCH (14:25)
[2017-12-02] MEDS ORDERED: MIDAZOLAM HCL 2 MG/2 ML VIAL ONE (14:41)
[2017-12-02] MEDS ORDERED: HEPARIN-NS/PF INJ 1,000 ML ONE (14:41)
[2017-12-02] MEDS ORDERED: diphenhydrAMINE HCL 50 MG/ML VIAL ONE (14:46)
[2017-12-02] MEDS ORDERED: FAMOTIDINE 20 MG/2 ML VIAL ONE (14:47)
[2017-12-02] MEDS ORDERED: LIDOCAINE HCL 1% PF 30 ML VIAL ONE (14:52)
--- NOTE | 2017-12-02 15:00 | MB ---
cc: Barry Fairchild MD DATE: 12/02/2017 HISTORY OF PRESENT ILLNESS: This is a pleasant, 57-year-old lady with status post CABG in 2005, has been having chest pain since Wednesday, severe enough where she went to the emergency room. She is still having severe chest pain despite nitro paste, aspirin and morphine. Otherwise, denies any fevers, chills, cough, GI or bleeding, PND, orthopnea, syncope or dizziness. PAST MEDICAL HISTORY: As per history of present illness. PAST MEDICAL HISTORY: Includes anxiety, 4-vessel bypass 2005, hyperlipidemia, history of TIA, CAD, diabetes. SOCIAL HISTORY: Denies tobacco or alcohol use. ALLERGIES: CODEINE, IODINE, POTASSIUM IODIDE, POVIDONE IODINE, SHELLFISH, SODIUM IODIDE, SODIUM IODINE. MEDICATIONS PRIOR TO ADMISSION: 1. Aspirin 81 mg a day. 2. HCTZ 12.5 daily. 3. Plavix 75 mg daily. 4. Metoprolol 25 mg daily. 5. Lisinopril 20 mg daily. 6. Glipizide 5 mg daily. MEDICATIONS IN HOSPITAL: 1. Aspirin 81 mg a day. 2. Clopidogrel 75 mg daily. 3. Lisinopril 20 mg daily. 4. Metoprolol 25 mg daily. 5. One-inch nitro paste q. 6 hours. 6. IV heparin. PHYSICAL EXAMINATION: VITAL SIGNS: Blood pressure 142/71, pulse 86, respiratory rate 18, temperature 97.6. GENERAL: She is alert and oriented x3, in moderate distress. NECK: Supple. No JVD. No bruit. CARDIOVASCULAR: S1, S2. No murmurs, rubs or gallops. LUNGS: Clear to auscultation bilaterally. ABDOMEN: Soft. Nontender, nondistended. Positive bowel sounds. EXTREMITIES: No lower extremity edema. LABORATORY DATA: White count 9.6, hemoglobin 13.6, hematocrit 40.9, platelet count 296. Sodium 141, potassium 3.7, chloride 105, bicarbonate 26.6, BUN 15, creatinine 0.70, glucose 245. LFTs normal. Troponin 0.11, 0.12 and 0.13. INR is 1.0. Chest x-ray: No acute cardiopulmonary process. EKG: Normal sinus rhythm at 71 beats per minute, nonspecific ST-T wave changes. DIAGNOSES: 1. Veb-[id number]-[id number] myocardial infarction. 2. [place] [employer] class IV angina. 3. Coronary artery disease. 4. Status post coronary artery bypass grafting. 5. Diabetes mellitus. 6. Hypertension. DISCUSSION: Left heart catheterization is medically necessary due to [id number] myocardial infarction with moderate chest pain ongoing despite optimal medical therapy with heparin, nitro, aspirin and Plavix. Further recommendations based on the details of her cardiac catheterization. Barry Fairchild MD AWC/TL , 02:36 PM , 02:59 PM
--- NOTE | 2017-12-02 15:40 | CATHPROC ---
[employer] HIS Report Study Information Study Number Admission Scheduled Start Study Start [id number] Dec 02 2017 2:20AM 12/02/2017 Dec 02 2017 2:17PM [place] Service Cardiac Catheterization Admit Source Facility Department Other [facility] - Senior Climate Advisor Physician and Clinical Staff Initial Barry Gonzalez Outside Repairer Special Alba Rodriguez,RN Recorder Christina Burns ,RT(R) Scrub StoneSofie,RT(R) Scrub Student, LITIGATOR/RT(R) Procedures Performed Procedure Location (Site) Vessel Name Coronary Angiograms LCA Left Coronary Coronary Angiograms RCA Right Coronary Coronary Angiograms YANES-LAD Left Coronary Coronary Angiograms SVG-OM CIRC L Heart Cath LV Gram-hand inj. LV LV Ventricle Wire insertion Fem Art (right) Femoral Art Equipment Time Wall Washer Description Size Mfg Part Number Used/Scraped TRANSDUCER, TRUWAVE [id number] 14:47 [employer] GAR * Used W/STOCKCOCK *[id number] 538-448 *[id number] 538-420 *[id number] [id number] *[id number] 14:47 [employer] BLANKET,WARM AIR CCL * Used *[id number] 14:47 [employer] PACK, CCL CUSTOM * Used *[id number] 14:47 [employer] PACER PEN, SKIN DUAL W/ RULER * Used *[id number] 14:47 [employer] WIRE, 3MMJ .035 180CM 180CM Used *[id number] 14:47 [employer] MAN[employer]OLD, 4 PORT * Used *[id number] 14:47 [employer] OMNIPAQUE, 350 MG, 150ML 150ML [id number] Used [id number] 14:47 [employer] SHEATH, FR4 TERUMO (10CM) FR 4 Used *[id number] 15:05 [employer] SHEATH, FR4 TERUMO (10CM) FR 4 Used *[id number] History: Current Medications Medication Dosage/Unit Route Frequency Last Date/Time Taken Beta Vanna ASA PLAVIX History: Allergies Allergy Reaction potassium iodide NAUSEA/VOMITING sodium iodide NAUSEA/VOMITING codeine VOMITING iodine NAUSEA/VOMITING povidone-iodine NAUSEA/VOMITING shellfish derived N/V History: Risk Factors Family History of Hypertension Dyslipidemia Previous NV Previous Heart Failure Premature CAD Yes Yes Yes No No Prior Valve Prior PCI Prior CABG Prior CABGDate Surgery No No Yes 06/07/2005 Cerebrovascular Peripheral Artery Chronic Lung On Dialysis Diabetes Diabetes Therapy Disease Disease Disease No Yes No No Yes Oral History: Stress Tests Stress or Imaging Studies Performed No History: Other Current Smoker Quit Packs a Day Years Used Pack Years No 2 Years Ago 1 42 42 Labs Hgb (g/dl) Hct (%) WBC (l/cumm) Platelets (thousands) 11.60-17.00 35.00-51.00 4.00-11.00 150.00-450.00 13.6 40.9 9.6 296 Glucose (mg/dl) BUN (mg/dl) Creatinine (mg/dl) BUN:Creatinine (1:x) 74.00-106.00 7.00-18.00 0.50-1.30 10.00-20.00 245 15 0.7 21.4 Na (meq/l) K (meq/l) 136.00-145.00 3.50-5.10 141 3.7 INR (PTT:PT) 0.90-1.10 1 Troponin I (ng/ml) CPK (u/l) CPK-MB (ng/ML) 0.02-0.05 26.00-308.00 0.50-3.60 0.12 68 Not Drawn Medication Medication Total Dose (Bolus/Oral) Medication Total Dosage/Unit 1% XYLOCAINE 20 mL BENADRYL 50 mg FENTANYL 25 mcg PEPCID 20 mg VERSED 1 mg Medications (Bolus/Oral) Medication Time Given Dosage/Unit Administered By Reason PEPCID 12/02/2017 2:46:54 PM 20 mg Adamy, Alba 20 mg PEPCID given in lab by Alba Rodriguez RN in Left Antecubital. Ordered by Barry Fairchild. BENADRYL 12/02/2017 2:47:20 PM 50 mg Adamy, Alba 50 mg BENADRYL given in lab by Alba Rodriguez RN in Left Antecubital via Peripheral IV. Ordered by Barry Fairchild. VERSED 12/02/2017 3:03:47 PM 1 mg Adamy, Alba 1 mg VERSED given in lab by Alba Rodriguez, LIN in Left Antecubital via Peripheral IV. Ordered by Barry Gupta. FENTANYL 12/02/2017 3:04:57 PM 25 mcg Alba Rodriguez 25 mcg FENTANYL given in lab by Alba Rodriguez RN via Peripheral IV. Ordered by Barry Fairchild. 1% XYLOCAINE 12/02/2017 3:06:55 PM 20 mL Barry Fairchild 20 mL 1% XYLOCAINE given in lab by Barry Fairchild in Right Groin via Subcutaneous. Ordered by Barry Sheridan. Medication (Drip) Medication Time Given Dosage/Unit Concentration/Unit Diluent (ml) Solution IV Solutions 12/02/2017 2:38:57 PM 50 mL (IV) NaCl .9 Patient arrived on IV Solutions in Left Antecubital via Peripheral IV. Pump/Drip Flow using NaCl .9. Initial Case Assessment Cardiovascular HR Rhythm NIBP 66 sr 150/63 Edema Present Skin color Skin None Normal Warm Dry Circulatory - Right Pulses Dorsalis Pedis Femoral 1 2 Scale (0,1,2,3,4,d) Circulatory - Left Pulses Dorsalis Pedis Femoral 1 2 Scale (0,1,2,3,4,d) Circulatory - Lower Extremities Color Lower Right Color Lower Left Normal Normal Neurological State Oriented to time-place- Alert Moves all extremities person Respiration - General Respiration Rate SpO2 (%) (B/min) 13 94 Final Case Assessment Cardiovascular HR Rhythm NIBP 72 sr 175/85 Edema Present Skin color Skin None Normal Warm Dry Circulatory - Right Pulses Dorsalis Pedis Femoral 1 2 Scale (0,1,2,3,4,d) Circulatory - Left Pulses Dorsalis Pedis Femoral 1 2 Scale (0,1,2,3,4,d) Circulatory - Lower Extremities Color Lower Right Color Lower Left Normal Normal Neurological State Oriented to time-place- Alert Moves all extremities person Respiration - General Respiration Rate SpO2 (%) (B/min) 13 94 Chronological Log Time Study Chronological Log 14:34:25 Patient arrived via Bed. 14:34:26 Patient Name, D.O.B, / Armband Verified By R.N. 14:38:45 Consent signed by the physician and the patient and verified by the Senior Climate Advisor staff. 14:38:45 Pre-op and post- op instructions given; patient acknowledges understanding of instructions. 14:38:46 Verbal Stimulation=2 Physical Stimulation=2 Airway=2 Respiration=2 TOTAL=8. (0=absent, 1=li mited, 2=present) 14:38:49 Patient has been NPO for More than 6Hrs. 14:38:51 Skin Breakdown- none per patient 14:38:55 Patient Warmer Placed on the Table. 14:38:56 Ashanti Prominences Protected 14:38:57 A # 20 IV was noted in the Antecubital (left). Grade = 0 14:38:57 Patient arrived on IV Solutions in Left Antecubital via Peripheral IV. Pump/Drip Flow using NaCl .9. 14:38:58 History and physical on the chart or being dictated. Assessment: Initial Case, HR=66 BPM, Rhythm=sr, RLFC=073/63 mmhg, Edema=None, Color=Normal, Ski n = Warm, Dry Right Pulses: Salvatore Ped=1, Femoral=2 Left Pulses: Salvatore Ped=1, Femoral=2 14:38:59 Lower Right Extremities: Color=Normal Lower Left Extremities: Color=Normal Neurological: State=Alert, Ox3, SANDOVAL Respiration: Resp=13 B/min, SpO2=94 % Vitals capture started with the following parameters, Patient=Adult, Interval=5 min, Initial Pr lepnnx=215 mmHg, 14:41:56 Deflation Rate=5 mmHg, Cuff placed on Left Arm 14:43:17 HR=64 bpm, PAMV=815/63 mmhg, SpO2=90.0 %, Resp=13 B/min 14:46:54 20 mg PEPCID given in lab by Alba Rodriguez, LIN in Left Antecubital. Ordered by Barry Fairchild. 50 mg BENADRYL given in lab by Alba Rodriguez, LIN in Left Antecubital via Peripheral IV. Order ed by Devorah, 14:47:20 Barry. 14:47:41 HR=66 bpm, PDGO=593/76 mmhg, SpO2=94.0 %, Resp=19 B/min 14:51:33 MD arrived. 14:52:42 HR=64 bpm, BOTP=522/72 mmhg, SpO2=95.0 %, Resp=12 B/min 14:54:38 Bilateral groins prepped with 2% chlorhexidine, and draped after a 3 minute waiting time. 14:57:43 HR=62 bpm, KCXU=499/64 mmhg, SpO2=96.0 %, Resp=13 B/min 15:01:52 Reference ECG taken 15:02:23 Pressure channel 1 zeroed. 15:02:40 HR=45 bpm, JZCI=615/70 mmhg, SpO2=96.0 %, Resp=12 B/min 15:03:47 1 mg VERSED given in lab by Alba Rodriguez, LIN in Left Antecubital via Peripheral IV. Orde red by Barry Fairchild. 15:04:57 25 mcg FENTANYL given in lab by Alba Rodriguez, LIN via Peripheral IV. Ordered by Barry Fairchild. Time Out. Correct patient, correct procedure, correct physician, labs, allergies, and equipment verified with nitriles lab technician 15:05:44 team present. Fire risk assesment completed (see hard stop sheet for coding). Time Out Conc urred by MD and individual staff in procedure. 15:06:54 Case Start 20 mL 1% XYLOCAINE given in lab by Barry Fairchild in Right Groin via Subcutaneous. Ordered by Devorah, 15:06:55 Barry. 15:07:39 HR=69 bpm, VWYW=486/90 mmhg, SpO2=96.0 %, Resp=21 B/min 15:07:47 Access site was Right Femoral Artery. 15:07:56 A wire was inserted via Fem Art (right). 15:07:58 A SHEATH, FR4 TERUMO (10CM) FR 4 was advanced into the Fem Art (right) using the [place]o us technique. 15:08:22 Activated Clotting Time Drawn A JR 4.0 INFINITI CATHETER FR 4 was advanced over a wire. OMNIPAQUE, 350 MG, 150ML 150ML was us ed for 15:08:58 injections. Recorded Pressure: LV, HR=69, Condition=Condition 1 15:09:41 (Left Ventricle) LV 183/18/27 15:09:47 The LV was manually injected with 10 cc's and visualized. OMNIPAQUE, 350 MG, 150ML 150ML us ed. Recorded Pressure: LV, Ao, HR=72, Condition=Condition 1 15:09:57 (Left Ventricle) LV 178/5/22, (Aorta) Ao 192/80/126 Recorded Pressure: Ao, HR=70, Condition=Condition 1 15:10:18 (Aorta) Ao 180/73/117 15:10:48 The RCA was injected and visualized at various angles. OMNIPAQUE, 350 MG, 150ML 150ML used . 15:10:58 ACT (Normal Range 90-180) = 129 15:11:45 The SVG-OM/ was injected and visualized at various angles. contrast used. 15:12:45 HR=73 bpm, TUUI=103/82 mmhg, SpO2=96.0 %, Resp=17 B/min 15:14:23 The YANES-LAD was injected and visualized at various angles. OMNIPAQUE, 350 MG, 150ML 150ML used. 15:15:02 Catheter was removed A AR MOD INFINITI CATHETER FR 4 was advanced over a wire. OMNIPAQUE, 350 MG, 150ML 150ML was u sed for 15:15:57 injections. 15:17:46 HR=75 bpm, VCIW=345/84 mmhg, SpO2=95.0 %, Resp=9 B/min After removing the current catheter a JL 4.0 INFINITI CATHETER FR 4 was advanced over a WIRE, 3MMJ .035 180CM 15:18:27 180CM. 15:18:34 The LCA was injected and visualized at various angles. OMNIPAQUE, 350 MG, 150ML 150ML use d. 15:19:28 Catheter was removed 15:22:25 Case End (Physician broke scrub) 15:22:47 HR=76 bpm, YFJL=213/85 mmhg, SpO2=96.0 %, Resp=17 B/min Assessment: Final Case, HR=72 BPM, Rhythm=sr, IVRL=001/85 mmhg, Edema=None, Color=Normal, Skin = Warm, Dry Right Pulses: Salvatore Ped=1, Femoral=2 Left Pulses: Salvatore Ped=1, Femoral=2 15:24:33 Lower Right Extremities: Color=Normal Lower Left Extremities: Color=Normal Neurological: State=Alert, Ox3, SANDOVAL Respiration: Resp=13 B/min, SpO2=94 % 15:25:20 Catheter(s) removed without difficulty 15:26:49 Sheath removed; pressure applied to access site. 15:26:55 Sterile dressing applied to site 15:26:56 No case complications noted. 15:26:57 Cine recording checked. 15:26:58 Bedside Report will be given. 15:27:06 A Left Heart Cath was performed. 15:27:48 HR=70 bpm, KRDD=831/82 mmhg, SpO2=95.0 %, Resp=10 B/min 15:32:47 HR=66 bpm, BRYZ=127/80 mmhg, SpO2=95.0 %, Resp=17 B/min 15:37:26 Vitals capture stopped. 15:37:51 Patient moved to stretcher End Study - Contrast Media Used In Study Contrast Total Opened (mL) Total Used (mL) Total Wasted (mL) Omnipaque 70 70 0 End Study - Maximum Contrast Load Max Contrast Load (mL) 701.3 End Study - Radiation Exposure Fluoro Time (minutes) 4.0 End Study - Sheaths Sheaths Pulled By Sheath Hold Time (min) Sofie Singh End Study - Patient Disposition Complications Transferred To Interventional Outcome No Critical Care Bed No attempt made
[2017-12-02] MEDS ORDERED: BACITRACIN OINT 0.9 GM PKT TOP ONE (15:45)
[2017-12-02] MEDS ORDERED: MISC INFORMATION XX ONE (15:45)
--- NOTE | 2017-12-02 16:11 | MA ---
cc: Barry Fairchild MD DATE: 12/02/2017 PROCEDURE PERFORMED: Left heart catheterization, left ventriculography, coronary angiography, YANES angiography, saphenous vein angiography. INDICATIONS: Coronary artery disease, status post CABG, diabetes mellitus, [place] Cardiovascular Society class IV angina. PROCEDURE: The patient was brought to the cardiac catheterization laboratory, prepped and draped in the usual sterile fashion. 10 mL of 1% lidocaine was used to locally anesthetize the right common femoral artery. The 4-[place] Island[place] sheath placed in the right common femoral artery. A 4-[place] JR4, JL4 and AR1 modified catheters were used to perform left and right coronary angiography, left ventriculography, saphenous vein angiography and YANES angiography. FINDINGS: The LV pressure is 180/19-20, 60%. The right coronary artery is nondominant, has a 95% proximal stenosis, reference vessel diameter 1-1.5 mm. There is a Y graft to a diagonal artery, which is widely patent. The ambler diagonal artery beyond the graft insertion site is a medium sized vessel 2.25 mm. No significant disease angiographically. The Y graft segment to the distal obtuse marginal vessel was widely patent. Marginal vessel beyond the graft insertion site is relatively small 1.5-2 mm. No significant obstructive disease. The graft fills the marginal vessel retrograde, where there is a 95% stenosis, then there is retrograde filling to a bifurcation filling a more medial branch of this marginal vessel, which is a 2.0 mm vessel that has no significant obstructive disease. Retrograde filling then goes to the distal AV groove left circumflex. There is no filling retrograde to the distal AV groove left circumflex. Antegrade, there is filling of the AV groove left circumflex to the crux, where there is a 95% stenosis just proximal to the initial segment of the left PDA. The left PDA then bifurcates just after this stenosis with a lateral branch, which is 0.5-1 mm vessel. No significant obstructive disease. There is a long segment of diffuse disease, probably up to 50-60%, reference vessel diameter of 1.5-2 mm. Then, the distal left PDA is probably 0.5 mm. No significant obstructive disease. The YANES to LAD is widely patent. There is mild to moderate narrowing in the ostium up to 30-40% angiographically. The ambler LAD beyond the graft insertion site is a 1.5-2 mm vessel. There is severe diffuse disease in the LAD versus some degree of anatomic tapering of the vessel. I do not see any focal stenosis, within the first 25 mm after the graft insertion site, the reference vessel diameter is about 2.25 mm and the remainder of the LAD is about 0.75-1 mm vessel with probably at least moderate relative disease up to 50-60% angiographically. The vein graft to the right is occluded at the ostium. The left main is heavily diseased diffusely, reference vessel diameter of 1.25 mm. LAD is occluded proximally. Left circumflex is occluded proximally. There is a small marginal vessel 0.5-1 mm in diameter coming off the proximal left circumflex. No significant obstructive disease. CONCLUSION: 1. 3 of 4 grafts patent. 2. Preserved left ventricular systolic function of 60%. 3. Non-ST elevation myocardial infarction, probably culprit severe disease in the marginal and AV groove left circumflex and left PDA, retrograde to the graft insertion site with no antegrade flow from the left main. 4. Severe 3-vessel coronary artery disease, right dominant system. 5. Diffuse small lumen diabetic coronary artery disease. RECOMMENDATION: Recommend medical management with optimal medical therapy. We will get a CT surgery consult; however, the left PDA is approximately a 0.75 mm vessel with diffuse disease. It does not appear to be optimal graft target due to its posterior location, small diameter. The LAD could potentially be stented, but it would probably require a full metal jacket within about 25 mm beyond the graft insertion site if there is diffuse disease, all the way down to the apex. MD JOEL Carrillo/SARIAH , 03:35 PM , 04:10 PM
[2017-12-02] MEDS ORDERED: IOHEXOL 350 MG/ML 100 ML BTL (for Cath Lab) OTHER ONE (17:14)
--- NOTE | 2017-12-02 17:14 | HHI.PR ---
Subjective Remarks 80-year-old female with a past medical history significant for coronary artery disease, diabetes mellitus, hypertension and hyperlipidemia presents to the emergency department for evaluation of elevated troponin. The patient reports she has been feeling nauseated with left-sided chest pain that radiates down her left arm since Wednesday. She saw her primary care physician earlier yesterday who did an EKG and ordered lab work for her. The patient completed the lab work and then went to work when she was called by the nurse practitioner stating that her troponin was elevated that she needed to come to the emergency department for further evaluation. The patient continues to have chest pain that is worse with movement that radiates down the left arm. She denies any shortness of breath. Intermittent nausea. No vomiting/diarrhea/ abdominal pain. No fevers/chills. No lateralizing signs/symptoms. 12-[address] SIDDIQUI TODAY [facility] HAS BEEN CONSULTED BY HIM AM LABS INCREASE ACTIVITY DW RN AND PT AND CM Patient had some chest pain earlier today started on nitro may need to be started on Imdur Objective Vitals Vital Signs Date Time Temp Pulse Resp B/P (MAP) Pulse Ox O2 Delivery O2 Flow Rate FiO2 12/02/17 16:07 98.2 58 17 143/69 (93) 92 12/02/17 12:00 58 12/02/17 11:29 97.6 66 18 142/71 (94) 96 12/02/17 11:00 56 12/02/17 10:00 64 12/02/17 09:00 62 12/02/17 08:54 97.8 63 18 136/63 (87) 92 12/02/17 08:00 85 12/02/17 07:00 64 12/02/17 07:00 64 12/02/17 06:00 62 12/02/17 04:30 97.9 68 20 150/65 (93) 97 12/02/17 04:30 68 12/02/17 04:00 12/02/17 02:37 66 18 190/80 (116) 97 Room Air 12/01/17 23:15 98.3 73 20 225/85 (131) 97 I/O 12/01/17 12/01/17 12/01/17 12/02/17 12/02/17 12/02/17 07:00 15:00 23:00 07:00 15:00 23:00 # Voids 1 Result Diagram: 12/02/17 0030 12/02/17 0030 Other Results Laboratory Tests Test 12/02/17 00:30 12/02/17 09:22 12/02/17 12:57 12/02/17 16:50 White Blood Count 9.6 TH/MM3 Red Blood Count 4.62 MIL/MM3 Hemoglobin 13.6 GM/DL Hematocrit 40.9 % Mean Corpuscular Volume 88.5 FL Mean Corpuscular Hemoglobin 29.5 PG Mean Corpuscular Hemoglobin Concent 33.3 % Red Cell Distribution Width 13.2 % Platelet Count 296 TH/MM3 Mean Platelet Volume 8.7 FL Neutrophils (%) (Auto) 58.3 % Lymphocytes (%) (Auto) 31.0 % Monocytes (%) (Auto) 7.6 % Eosinophils (%) (Auto) 2.6 % Basophils (%) (Auto) 0.5 % Neutrophils # (Auto) 5.6 TH/MM3 Lymphocytes # (Auto) 3.0 TH/MM3 Monocytes # (Auto) 0.7 TH/MM3 Eosinophils # (Auto) 0.2 TH/MM3 Basophils # (Auto) 0.0 TH/MM3 CBC Comment DIFF FINAL Differential Comment Prothrombin Time 9.8 SEC Prothromb Time International Ratio 1.0 RATIO Activated Partial Thromboplast Time 24.7 SEC 30.7 SEC Blood Urea Nitrogen 15 MG/DL Creatinine 0.70 MG/DL Random Glucose 245 MG/DL Total Protein 7.0 GM/DL Albumin 2.9 GM/DL Calcium Level 8.4 MG/DL Alkaline Phosphatase 84 U/L Aspartate Amino Transf (AST/SGOT) 17 U/L Alanine Aminotransferase (ALT/SGPT) 42 U/L Total Bilirubin 0.2 MG/DL Sodium Level 141 MEQ/L Potassium Level 3.7 MEQ/L Chloride Level 105 MEQ/L Carbon Dioxide Level 26.6 MEQ/L Anion Gap 9 MEQ/L Estimat Glomerular Filtration Rate 86 ML/MIN Total Creatine Kinase 89 U/L 68 U/L 68 U/L Troponin I 0.11 NG/ML 0.12 NG/ML 0.13 NG/ML Imaging Last Impressions Chest X-Ray 12/02/17 0027 Signed Impressions: CONCLUSION: No acute cardiopulmonary process. Objective Remarks GENERAL: Awake alert and oriented 3 talkative and cooperative SKIN: Warm and dry. Right groin is stable HEAD: Atraumatic. Normocephalic. EYES: Pupils equal and round. No scleral icterus. No injection or drainage. Extraocular muscles intact ENT: No nasal bleeding or discharge. Mucous membranes pink and moist. Tongue is midline NECK: Trachea midline. No JVD. Supple CARDIOVASCULAR: Regular rate and rhythm. S1-S2 no S3 or S4 RESPIRATORY: No accessory muscle use. Clear to auscultation. Breath sounds equal bilaterally. GASTROINTESTINAL: Abdomen soft, non-tender, nondistended. Hepatic and splenic margins not palpable. Obese MUSCULOSKELETAL: Extremities without clubbing, cyanosis, or edema. No obvious deformities. NEUROLOGICAL: Awake and alert. No obvious cranial nerve deficits. Motor grossly within normal limits. Five out of 5 muscle strength in the arms and legs. Normal speech. PSYCHIATRIC: Appropriate mood and affect; insight and judgment normal. Procedures 12/02/2017 PROCEDURE PERFORMED: Left heart catheterization, left ventriculography, coronary angiography, YANES angiography, saphenous vein angiography. INDICATIONS: Coronary artery disease, status post CABG, diabetes mellitus, [place] [employer] class IV angina. PROCEDURE: The patient was brought to the cardiac catheterization laboratory, prepped and draped in the usual sterile fashion. 10 mL of 1% lidocaine was used to locally anesthetize the right common femoral artery. The 4-[place] sheath placed in the right common femoral artery. A 4-[place] JR4, JL4 and AR1 modified catheters were used to perform left and right coronary angiography, left ventriculography, saphenous vein angiography and YANES angiography. FINDINGS: The LV pressure is 180/19-20, 60%. The right coronary artery is nondominant, has a 95% proximal stenosis, reference vessel diameter 1-1.5 mm. There is a Y graft to a diagonal artery, which is widely patent. The [place] diagonal artery beyond the graft insertion site is a medium sized vessel 2.25 mm. No significant disease angiographically. The Y graft segment to the distal obtuse marginal vessel was widely patent. Marginal vessel beyond the graft insertion site is relatively small 1.5-2 mm. No significant obstructive disease. The graft fills the marginal vessel retrograde, where there is a 95% stenosis, then there is retrograde filling to a bifurcation filling a more medial branch of this marginal vessel, which is a 2.0 mm vessel that has no significant obstructive disease. Retrograde filling then goes to the distal AV groove left circumflex. There is no filling retrograde to the distal AV groove left circumflex. Antegrade, there is filling of the AV groove left circumflex to the crux, where there is a 95% stenosis just proximal to the initial segment of the left PDA. The left PDA then bifurcates just after this stenosis with a lateral branch, which is 0.5-1 mm vessel. No significant obstructive disease. There is a long segment of diffuse disease, probably up to 50-60%, reference vessel diameter of 1.5-2 mm. Then, the distal left PDA is probably 0.5 mm. No significant obstructive disease. The YANES to LAD is widely patent. There is mild to moderate narrowing in the ostium up to 30-40% angiographically. The [place] LAD beyond the graft insertion site is a 1.5-2 mm vessel. There is severe diffuse disease in the LAD versus some degree of anatomic tapering of the vessel. I do not see any focal stenosis, within the first 25 mm after the graft insertion site, the reference vessel diameter is about 2.25 mm and the remainder of the LAD is about 0.75-1 mm vessel with probably at least moderate relative disease up to 50-60% angiographically. The vein graft to the right is occluded at the ostium. The left main is heavily diseased diffusely, reference vessel diameter of 1.25 mm. LAD is occluded proximally. Left circumflex is occluded proximally. There is a small marginal vessel 0.5-1 mm in diameter coming off the proximal left circumflex. No significant obstructive disease. CONCLUSION: 1. 3 of 4 grafts patent. 2. Preserved left ventricular systolic function of 60%. 3. Non-ST elevation myocardial infarction, probably culprit severe disease in the marginal and AV groove left circumflex and left PDA, retrograde to the graft insertion site with no antegrade flow from the left main. 4. Severe 3-vessel coronary artery disease, right dominant system. 5. Diffuse small lumen diabetic coronary artery disease. RECOMMENDATION: Recommend medical management with optimal medical therapy. We will get a CT surgery consult; however, the left PDA is approximately a 0.75 mm vessel with diffuse disease. It does not appear to be optimal graft target due to its posterior location, small diameter. The LAD could potentially be stented, but it would probably require a full metal jacket within about 25 mm beyond the graft insertion site if there is diffuse disease, all the way down to the apex. Barry Siddiqui MD Medications and IVs Current Medications Heparin Sodium (Porcine) (Heparin Inj) 4,000 units ONCE ONCE IV Last administered on 12/02/17at 03:13; Start 12/02/17 at 02:15; Stop 12/02/17 at 02:16 ; Status DC Heparin Sodium/ Dextrose 250 ml @ 10 mls/hr TITRATE PRN IV Coagulation Management Last administered on 12/02/17at 03:15; Start 12/02/17 at 02:15; Stop 12/02/17 at 15:43; Status DC Nitroglycerin (Nitroglycerin 2% Oint) 1 inch ONCE ONCE TOPICAL Last administered on 12/02/17at 02:34; Start 12/02/17 at 02:15; Stop 12/02/17 at 15:43 ; Status DC Sodium Chloride 1,000 ml @ 100 mls/hr Q10H IV Last administered on 12/02/17at 14:04; Start 12/02/17 at 03:00 Sodium Chloride (NS Flush) 2 ml BID IV FLUSH Last administered on 12/02/17at 09: 30; Start 12/02/17 at 09:00; Stop 12/02/17 at 15:42; Status DC Sodium Chloride (NS Flush) 2 ml UNSCH PRN IV FLUSH FLUSH AFTER USING IV ACCESS ; Start 12/02/17 at 02:45; Stop 12/02/17 at 15:42; Status DC Aspirin (Aspirin) 325 mg DAILY PO Last administered on 12/02/17at 09:30; Start 12/02/17 at 09:00; Stop 12/02/17 at 14:01; Status DC Acetaminophen/ Hydrocodone Bitart ([place] 7.5-325 Mg) 1 tab Q4H PRN PO PAIN SCALE 1 TO 5 Last administered on 12/02/17at 05:07; Start 12/02/17 at 02:45 Morphine Sulfate (Morphine Inj) 5 mg Q3H PRN IV PUSH PAIN SCALE 6 TO 10 Last administered on 12/02/17at 13:41; Start 12/02/17 at 02:45 Dextrose (D50w (Vial) Inj) 50 ml UNSCH PRN IV PUSH HYPOGLYCEMIA-SEE COMMENTS; Start 12/02/17 at 02:45; Stop 12/02/17 at 14:01; Status DC Glucagon (Glucagon Inj) 1 mg UNSCH PRN OTHER HYPOGLYCEMIA-SEE COMMENTS; Start 12/02/17 at 02:45; Stop 12/02/17 at 14:01; Status DC Insulin Aspart (NovoLOG SUPPLEMENTAL SCALE) 1 ACHS SLIDING SCALE SQ ; Start at 08:00; Stop 12/02/17 at 14:01; Status DC Clonidine (Catapres) 0.1 mg Q4H PRN PO SBP>160, DBP>90; Start 12/02/17 at 13:45 Nitroglycerin (Nitroglycerin 2% Oint) 1 inch Q6HR TOPICAL Last administered on 12/02/17at 14:03; Start 12/02/17 at 13:45; Stop 12/02/17 at 15:43; Status DC Nitroglycerin (Nitrostat Sl) 0.4 mg Q5M PRN SL CHEST PAIN; Start 12/02/17 at 13 :45 Aspirin (Aspirin Chew) 81 mg DAILY CHEW ; Start 12/03/17 at 09:00 Clopidogrel Bisulfate (Plavix) 75 mg HS PO ; Start 12/02/17 at 21:00 Lisinopril (Prinivil) 20 mg DAILY PO Last administered on 12/02/17at 14:25; Start 12/02/17 at 14:15 Metoprolol Tartrate (Lopressor) 25 mg DAILY PO Last administered on 12/02/17at 14:25; Start 12/02/17 at 14:15; Stop 12/02/17 at 15:43; Status DC Dextrose (D50w (Vial) Inj) 50 ml UNSCH PRN IV PUSH HYPOGLYCEMIA-SEE COMMENTS; Start 12/02/17 at 13:45 Glucagon (Glucagon Inj) 1 mg UNSCH PRN OTHER HYPOGLYCEMIA-SEE COMMENTS; Start 12/02/17 at 13:45 Insulin Aspart (NovoLOG SUPPLEMENTAL SCALE) 1 ACHS SLIDING SCALE SQ Last administered on 12/02/17at 16:16; Start 12/02/17 at 17:00 Methylprednisolone Sodium Succinate (SoluMEDROL INJ) 125 mg NOW ONCE IV Last administered on 12/02/17at 14:20; Start 12/02/17 at 14:15; Stop 12/02/17 at 14:16 ; Status DC Heparin Sodium/ Sodium Chloride 1,000 ml @ As Directed STK-MED ONCE .ROUTE Last administered on 12/02/17at 14:41; Start 12/02/17 at 14:41; Stop 12/02/17 at 14:42; Status DC Midazolam HCl (Versed Inj) 2 mg STK-MED ONCE .ROUTE Last administered on at 15:03; Start 12/02/17 at 14:41; Stop 12/02/17 at 14:42; Status DC Fentanyl Citrate (fentaNYL INJ) 100 mcg STK-MED ONCE .ROUTE Last administered on 12/02/17at 15:04; Start 12/02/17 at 14:41; Stop 12/02/17 at 14:42; Status DC Diphenhydramine HCl (Benadryl Inj) 50 mg STK-MED ONCE .ROUTE Last administered on 12/02/17at 14:47; Start 12/02/17 at 14:46; Stop 12/02/17 at 14:47; Status DC Famotidine (Pepcid Inj) 20 mg STK-MED ONCE .ROUTE Last administered on at 14:46; Start 12/02/17 at 14:47; Stop 12/02/17 at 14:48; Status DC Lidocaine HCl (Xylocaine-Mpf 1% Inj) 30 ml STK-MED ONCE .ROUTE Last administered on 12/02/17at 14:52; Start 12/02/17 at 14:52; Stop 12/02/17 at 14:53 ; Status DC Sodium Chloride (NS Flush) 2 ml BID IV FLUSH ; Start 12/02/17 at 21:00 Sodium Chloride (NS Flush) 2 ml UNSCH PRN IV FLUSH FLUSH AFTER USING IV ACCESS ; Start 12/02/17 at 15:45 Miscellaneous Information 1 ONCE ONCE XX ; Start 12/02/17 at 15:45; Stop at 15:47; Status DC Bacitracin (Bacitracin Oint Packet) 0.9 gm ONCE ONCE TOP ; Start 12/02/17 at 15 :45; Stop 12/02/17 at 15:47; Status DC Amlodipine Besylate (Norvasc) 10 mg ONCE ONCE PO Last administered on at 16:14; Start 12/02/17 at 15:45; Stop 12/02/17 at 15:47; Status DC Amlodipine Besylate (Norvasc) 10 mg DAILY PO ; Start 12/03/17 at 09:00 Nitroglycerin (Nitroglycerin 2% Oint) 2 inch Q6HR TOPICAL ; Start 12/02/17 at 18 :00 Metoprolol Tartrate (Lopressor) 50 mg Q8HR PO ; Start 12/02/17 at 22:00 Atorvastatin Calcium (Lipitor) 80 mg HS PO ; Start 12/02/17 at 21:00 A/P Assessment and Plan 1. NSTEMI/CAD EKG shows normal sinus rhythm with nonspecific ST-T wave changes without ST segment elevation or depression, personally reviewed Initial troponin 0 0.11 Heparin bolus and drip Cardiology consulted, appreciate recommendations--status post cardiac catheterization--cardiovascular surgery has been consult Continue aspirin and Plavix once medication reconciliation complete Had recurrent chest pain started on nitro may need to be placed on long-acting Imdur 2. Diabetes mellitus Holding home glipizide Sliding-scale insulin Monitor blood glucose 3. Hypertension/hyperlipidemia Continue home medications once reconciled FEN N.p.o. Electrolytes: Monitor and replete as needed NS at 100 cc/hour Heparin drip Discharge Planning Pending cardiovascular and cardiovascular surgery clearance Paulino Dillard DO Dec 02, 2017 17:14
[2017-12-02] MEDS: NITROGLYCERIN 2% OINT 1 GM PACKET TOPICAL SCH (18:13)
--- NOTE | 2017-12-02 19:41 | EKG ---
Date Performed: 12/02/2017 Time Performed: 07:08:36 PTAGE: 57 years EKG: Sinus rhythm with 1st degree A-V block Left bundle branch block When compared to previous tracing, left bundle br anch block is New. Clinical correlation is recommended. Abnormal ECG PREVIOUS TRACING : 12/01/2017 23.35 DOCTOR: Wood Ruiz Interpretating Date/Time 12/02/2017 19:40:55
--- NOTE | 2017-12-02 19:41 | EKG ---
Date Performed: 12/01/2017 Time Performed: 23:35:13 PTAGE: 57 years EKG: Sinus rhythm WITH FIRST DEGREE AV BLOCK MODERATE T-WAVE ABNORMALITY, CONSIDER ANTERIOR ISCHEMIA. When compared to previous tracing, Anterior T wave changes are Slightly more prominant. ABNORMAL ECG PREVIOUS TRACING : 09/10/2017 11.57 DOCTOR: Wood Ruiz Interpretating Date/Time 12/02/2017 19:39:53
[2017-12-02] MEDS: METOPROLOL TARTRATE 50 MG TAB PO SCH (20:58)
[2017-12-02] MEDS: SODIUM CHLORIDE 0.9% FLUSH 10 ML FLUSH IV FLUSH SCH (21:00)
[2017-12-02] MEDS ORDERED: CLOPIDOGREL 75 MG TAB PO SCH (21:00)
[2017-12-02] MEDS ORDERED: ATORVASTATIN 80 MG TAB PO SCH (21:00)
[2017-12-03] VITALS (20 sets, daily range): BP systolic 114–145; BP diastolic 44–65; PULSE 51–62; RESP 16–18; TEMP 97.9–98.5; O2SAT 95–99
[2017-12-03] MEDS: SODIUM CHLOR 0.9% 1000 ML INJ 1,000 ML IV SCH ×2 (01:30→09:00)
[2017-12-03] MEDS: NITROGLYCERIN 2% OINT 1 GM PACKET TOPICAL SCH ×3 (01:30→13:23)
[2017-12-03 06:31] LABS: AUTOMATED NEUTROPHIL # 9.4 TH/MM3 (1.8-7.7); BASOPHIL % 0.2 % (0.0-2.0); HEMATOCRIT 38.5 % (35.0-46.0); HEMOGLOBIN 12.9 GM/DL (11.6-15.3); LYMPH % 11.4 % (9.0-44.0); LYMPHOCYTE # 1.2 TH/MM3 (1.0-4.8); MEAN CELL VOLUME 89.1 FL (80.0-100.0); MEAN CORPUSCULAR HEMOGLOBIN 29.8 PG (27.0-34.0); MEAN CORPUSCULAR HGB CONC 33.4 % (32.0-36.0); MEAN PLATELET VOLUME 8.9 FL (7.0-11.0); MONO % 1.3 % (0.0-8.0); MONOCYTE # 0.1 TH/MM3 (0-0.9); NEUT % 87.1 % (16.0-70.0); PLATELET COUNT 295 TH/MM3 (150-450); RED BLOOD COUNT 4.32 MIL/MM3 (4.00-5.30); RED CELL DISTRIBUTION WIDTH 13.1 % (11.6-17.2); WHITE BLOOD COUNT 10.8 TH/MM3 (4.0-11.0)
[2017-12-03 07:00] LABS: ALBUMIN 2.8 GM/DL (3.4-5.0); ALT (GPT) 81 U/L (10-53); AST (GOT) 54 U/L (15-37); BICARBONATE 24.8 MEQ/L (21.0-32.0); BLOOD UREA NITROGEN 15 MG/DL (7-18); CALCIUM 7.7 MG/DL (8.5-10.1); CHLORIDE 107 MEQ/L (98-107); CHOLESTEROL 196 MG/DL (120-200); CREATININE 0.59 MG/DL (0.50-1.00); GLOMERULAR FILTRATION RATE 105 ML/MIN (>89); GLUCOSE,RANDOM 287 MG/DL (74-106); MAGNESIUM 1.8 MG/DL (1.5-2.5); PHOSPHORUS 2.9 MG/DL (2.5-4.9); SODIUM (NA) 140 MEQ/L (136-145); TRIGLYCERIDES 128 MG/DL (42-150)
[2017-12-03 07:05] LABS: ALKALINE PHOSPHATASE 104 U/L (45-117); CHOLESTEROL/ HDL RATIO 5.13 RATIO; FREE T4 1.01 NG/DL (0.76-1.46); HDL CHOLESTEROL 38.2 MG/DL (40.0-60.0); LDL CHOLESTEROL 132 MG/DL (0-99); TOTAL BILIRUBIN ADULT 0.2 MG/DL (0.2-1.0); TOTAL PROTEIN 6.7 GM/DL (6.4-8.2)
--- NOTE | 2017-12-03 08:22 | EKG ---
Date Performed: 12/03/2017 Time Performed: 05:12:12 PTAGE: 57 years EKG: Sinus bradycardia Possible anterior infarct - age undetermined Nonspecific anterior T wave abnormality Abnormal ECG NO PREVIOUS TRACING DOCTOR: Mo Reed Interpretating Date/Time 12/03/2017 08:22:07
[2017-12-03] MEDS: LISINOPRIL 20 MG TAB PO SCH (08:33)
[2017-12-03] MEDS: METOPROLOL TARTRATE 50 MG TAB PO SCH ×2 (08:34→15:14)
[2017-12-03] MEDS: INSULIN ASPART SUPPLEMENTAL SCALE SQ SCH ×2 (08:36→13:22)
[2017-12-03] MEDS: SODIUM CHLORIDE 0.9% FLUSH 10 ML FLUSH IV FLUSH SCH (08:37)
[2017-12-03] MEDS ORDERED: ASPIRIN 81 MG CHEW TAB CHEW SCH (09:00)
--- NOTE | 2017-12-03 11:28 | EKG ---
Date Performed: 12/02/2017 Time Performed: 13:06:52 PTAGE: 57 years EKG: Sinus rhythm with 1st degree A-V block Left bundle branch block Abnormal ECG PREVIOUS TRACING : 12/02/2017 07.08 No significant change from previous tracing noted. DOCTOR: Mo Reed Interpretating Date/Time 12/03/2017 11:27:49
--- NOTE | 2017-12-03 11:37 | MB ---
cc: Candy Badillo,Jackie Bean MD DATE: 12/03/2017 HISTORY OF PRESENT ILLNESS: A 57-year-old patient, history of coronary artery disease, presented to the emergency room with chest pain, ruled in for a non-STEMI, history of prior coronary artery bypass grafting in 2005 with a YANES to the LAD, saphenous vein graft to the diagonal, saphenous vein graft to the OM, saphenous vein graft to the PDA and circumflex, endoscopic harvest. The patient underwent cardiac catheterization by Dr. Fairchild which showed that 3/4 grafts were patent, preserved LV systolic function of 60 percent. The cardiac films have been reviewed by Dr. Jackie Weaver. There were no distal targets amenable to the chitimacha OM and chitimacha circumflex. The distal vessels were too small. Apparently, the patient has been told this in the past. PAST MEDICAL HISTORY: Includes coronary artery disease, anxiety, diabetes, history of transient ischemic attack. PAST SURGICAL HISTORY: Include coronary artery bypass graft x 4 in 2005. ALLERGIES: CODEINE, IODINE, POTASSIUM IODINE, SHELLFISH. HOME MEDICATIONS: Include: 1. Aspirin. 2. Hydrochlorothiazide. 3. Plavix. 4. Metoprolol. 5. Lisinopril. 6. Glipizide. SOCIAL HISTORY: The patient still remains on Plavix during her hospital stay. REVIEW OF SYSTEMS: Other than the HPI, otherwise unremarkable. PHYSICAL EXAMINATION: VITAL SIGNS: Blood pressure 120/70, heart rate of 64, temperature max 98, room air sat 96. GENERAL: The patient is awake and alert in no acute distress. HEENT: Head is normocephalic, atraumatic. Pupils equal and reactive. Oral mucosa pink, moist. NECK: Supple. No JVD. CARDIOVASCULAR: Heart sounds S1, S2. Regular rate and rhythm. No rubs, murmurs or gallops. LUNGS: Clear to auscultation. No wheezes, rales or rhonchi. ABDOMEN: Obese, soft, nontender. No masses or organomegaly. EXTREMITIES: No cyanosis, clubbing, or edema. LABORATORY DATA: Urinalysis was unremarkable. Lab work shows hemoglobin of 12, hematocrit of 30, white cell count of 10, platelet count of 295. Sodium 140, potassium 4.2, BUN of 15, creatinine 0.59. Troponin highest 0.13. BNP of 298. INR 1.0. IMAGING: Chest x-ray: No acute process. IMPRESSION: This is again a 57-year-old patient we were consulted to evaluate potential candidate for redo coronary artery bypass grafting. The patient has had prior coronary artery bypass x 4. She now has a saphenous vein graft to the left PDA. This is completely occluded; however, the 3/4 grafts are patent and again no distal targets amenable. The chitimacha OM and distal chitimacha circumflex are too small to bypass at this time. Recommend maximizing medical treatment. FORREST Collins MD JRT/DL , 11:18 AM , 11:35 AM
[2017-12-03] MEDS ORDERED: ISOSORBIDE MONONITRATE 60 MG CR TAB (IMDUR) PO ONE (15:15)
--- NOTE | 2017-12-03 15:30 | PD.CARD.PN ---
Subjective Subjective Remarks assymptomatic in nad Objective Medications Current Medications Medications (Trade) Dose Ordered Sig/David Route Start Time Stop Time Status Last Admin Sodium Chloride 1,000 ml @ 100 mls/hr Q10H IV 12/02/17 03:00 12/03/17 01:30 ([place] 7.5-325 Mg) 1 tab Q4H PRN PO 12/02/17 02:45 12/02/17 05:07 (Morphine Inj) 5 mg Q3H PRN IV PUSH 12/02/17 02:45 12/02/17 21:17 (Catapres) 0.1 mg Q4H PRN PO 12/02/17 13:45 (Nitrostat Sl) 0.4 mg Q5M PRN SL 12/02/17 13:45 (Aspirin Chew) 81 mg DAILY CHEW 12/03/17 09:00 12/03/17 08:35 (Plavix) 75 mg HS PO 12/02/17 21:00 12/02/17 20:58 (Prinivil) 20 mg DAILY PO 12/02/17 14:15 12/03/17 08:33 (D50w (Vial) Inj) 50 ml UNSCH PRN IV PUSH 12/02/17 13:45 (Glucagon Inj) 1 mg UNSCH PRN OTHER 12/02/17 13:45 (NovoLOG SUPPLEMENTAL SCALE) 1 ACHS SLIDING SCALE SQ 12/02/17 17:00 12/03/17 13:22 (NS Flush) 2 ml BID IV FLUSH 12/02/17 21:00 12/03/17 08:37 (NS Flush) 2 ml UNSCH PRN IV FLUSH 12/02/17 15:45 (Norvasc) 10 mg DAILY PO 12/03/17 09:00 12/03/17 08:37 (Lopressor) 50 mg Q8HR PO 12/02/17 22:00 12/03/17 15:14 (Lipitor) 80 mg HS PO 12/02/17 21:00 12/02/17 20:58 (Imdur) 60 mg DAILY PO 12/04/17 09:00 Vital Signs / I&O Vital Signs Date Time Temp Pulse Resp B/P (MAP) Pulse Ox O2 Delivery O2 Flow Rate FiO2 12/03/17 15:06 97.9 60 18 115/56 (75) 95 12/03/17 14:20 96 12/03/17 14:00 58 12/03/17 13:00 56 12/03/17 12:00 58 12/03/17 11:30 98.0 57 18 129/60 (83) 96 12/03/17 11:00 57 12/03/17 10:00 56 12/03/17 09:00 62 12/03/17 08:00 55 12/03/17 07:45 97.9 60 17 145/62 (89) 97 12/03/17 07:00 60 12/03/17 04:00 55 12/03/17 04:00 98.3 61 18 130/65 (86) 96 12/03/17 03:09 53 12/03/17 02:00 51 12/03/17 00:00 98.5 58 16 127/62 (83) 96 12/02/17 21:44 92 12/02/17 20:00 98.5 66 18 141/72 (95) 94 12/02/17 19:00 66 12/02/17 18:00 70 12/02/17 17:00 58 12/02/17 16:07 98.2 58 17 143/69 (93) 92 12/02/17 16:00 56 I/O 12/02/17 12/02/17 12/02/17 12/03/17 12/03/17 12/03/17 07:00 15:00 23:00 07:00 15:00 23:00 Intake Total 1000 ml 240 ml 420 ml 1000 ml Output Total 1100 ml 1200 ml Balance 1000 ml -860 ml -780 ml 1000 ml Intake Oral 240 ml 420 ml IV Total 1000 ml 1000 ml Output Urine Total 1100 ml 1200 ml # Voids 1 # Bowel Movements 1 Physical Exam GENERAL: SKIN: Warm and dry. HEAD: Normocephalic. EYES: No scleral icterus. No injection or drainage. NECK: Supple, trachea midline. No JVD or lymphadenopathy. CARDIOVASCULAR: Regular rate and rhythm without murmurs, gallops, or rubs. RESPIRATORY: Breath sounds equal bilaterally. No accessory muscle use. GASTROINTESTINAL: Abdomen soft, non-tender, nondistended. MUSCULOSKELETAL: No cyanosis, or edema. BACK: Nontender without obvious deformity. No CVA tenderness. Laboratory Laboratory Tests Test 6/28/18 16:50 12/03/17 05:55 Activated Partial Thromboplast Time 25.0 SEC White Blood Count 10.8 TH/MM3 Red Blood Count 4.32 MIL/MM3 Hemoglobin 12.9 GM/DL Hematocrit 38.5 % Mean Corpuscular Volume 89.1 FL Mean Corpuscular Hemoglobin 29.8 PG Mean Corpuscular Hemoglobin Concent 33.4 % Red Cell Distribution Width 13.1 % Platelet Count 295 TH/MM3 Mean Platelet Volume 8.9 FL Neutrophils (%) (Auto) 87.1 % Lymphocytes (%) (Auto) 11.4 % Monocytes (%) (Auto) 1.3 % Eosinophils (%) (Auto) 0.0 % Basophils (%) (Auto) 0.2 % Neutrophils # (Auto) 9.4 TH/MM3 Lymphocytes # (Auto) 1.2 TH/MM3 Monocytes # (Auto) 0.1 TH/MM3 Eosinophils # (Auto) 0.0 TH/MM3 Basophils # (Auto) 0.0 TH/MM3 CBC Comment DIFF FINAL Differential Comment Blood Urea Nitrogen 15 MG/DL Creatinine 0.59 MG/DL Random Glucose 287 MG/DL Total Protein 6.7 GM/DL Albumin 2.8 GM/DL Calcium Level 7.7 MG/DL Phosphorus Level 2.9 MG/DL Magnesium Level 1.8 MG/DL Alkaline Phosphatase 104 U/L Aspartate Amino Transf (AST/SGOT) 54 U/L Alanine Aminotransferase (ALT/SGPT) 81 U/L Total Bilirubin 0.2 MG/DL Sodium Level 140 MEQ/L Potassium Level 4.2 MEQ/L Chloride Level 107 MEQ/L Carbon Dioxide Level 24.8 MEQ/L Anion Gap 8 MEQ/L Estimat Glomerular Filtration Rate 105 ML/MIN B-Type Natriuretic Peptide 298 PG/ML Triglycerides Level 128 MG/DL Cholesterol Level 196 MG/DL LDL Cholesterol 132 MG/DL HDL Cholesterol 38.2 MG/DL Cholesterol/HDL Ratio 5.13 RATIO Free Thyroxine 1.01 NG/DL Thyroid Stimulating Hormone 3rd Gen 0.517 uIU/ML Assessment and Plan Problem List: (1) NSTEMI (non-ST elevated myocardial infarction) ICD Codes: I21.4 - Non-ST elevation (NSTEMI) myocardial infarction Status: Acute (2) CAD (coronary artery disease) ICD Codes: I25.10 - CAD (coronary artery disease) Status: Acute (3) DM (diabetes mellitus) ICD Codes: E11.9 - DM (diabetes mellitus) Status: Acute (4) Hx of CABG ICD Codes: Z95.1 - Presence of aortocoronary bypass graft Status: Acute Assessment and Plan 1.) CAD - assymptomatic on optomal meds, bp much better, poor targets for redo cabg, may need transplant or consideration of surgical endarterectomy of lad/ lpda; ok to dc from cv standpoint on current meds, f/u with me in 2 weeks, d/w patient, nurse and Barry Nina MD Dec 03, 2017 15:29
--- NOTE | 2017-12-03 16:15 | ECHRPT ---
Indication: CVA/TIA CONCLUSIONS The left ventricular systolic function is hyperdynamic with an estimated ejection fraction in the ra nge of 65- 70%. Normal left ventricular size. Wall thickness is normal. No regional wall motion abnormalities are present. Mild thickening of the mitral valve leaflets. [id number] mitral valve regurgitation. Moderate mitral annular calcification. Mild mitral valve stenosis. Mitral valve mean gradient is 3 mmHg. The mitral valve area by Pressure Halftime Method is 162 cm. Diffuse calcification of the aortic valve. There is trace tricuspid valve regurgitation. Normal estimated pulmonary pressures. Trivial pulmonary valve regurgitation. BP: / HR: Rhythm: Sinus Technical Quality:Fair FINDINGS LEFT VENTRICLE The left ventricular systolic function is hyperdynamic with an estimated ejection fraction in the ra nge of 65- 70%. Normal left ventricular size. Wall thickness is normal. No regional wall motion abnormalities are present. RIGHT VENTRICLE Normal right ventricular size and systolic function. LEFT ATRIUM The left atrial size is normal. RIGHT ATRIUM The right atrial size is normal. ATRIAL SEPTUM Normal atrial septal thickness without atrial level shunting by limited color doppler interrogation. AORTA The aortic root and proximal ascending aorta are normal in size on limited imaging. MITRAL VALVE Mild thickening of the mitral valve leaflets. [id number] mitral valve regurgitation. Moderate mitral annular calcification. Mild mitral valve stenosis. Mitral valve mean gradient is 3 mmHg. The mitral valve area by Pressure Halftime Method is 162 cm. AORTIC VALVE Trileaflet aortic valve. Diffuse calcification of the aortic valve. TRICUSPID VALVE Structurally normal tricuspid valve. There is trace tricuspid valve regurgitation. Normal estimated pulmonary pressures. PULMONARY VALVE Trivial pulmonary valve regurgitation. VESSELS The inferior vena cava is normal in size. PERICARDIUM No pericardial effusion. Barry Fairchild MD, FACC, [facility] [place] (Electronically Signed) Final Date:03 December 2017 16:14
--- NOTE | 2017-12-03 16:46 | HHI.PR ---
Subjective Remarks 80-year-old female with a past medical history significant for coronary artery disease, diabetes mellitus, hypertension and hyperlipidemia presents to the emergency department for evaluation of elevated troponin. The patient reports she has been feeling nauseated with left-sided chest pain that radiates down her left arm since Wednesday. She saw her primary care physician earlier yesterday who did an EKG and ordered lab work for her. The patient completed the lab work and then went to work when she was called by the nurse practitioner stating that her troponin was elevated that she needed to come to the emergency department for further evaluation. The patient continues to have chest pain that is worse with movement that radiates down the left arm. She denies any shortness of breath. Intermittent nausea. No vomiting/diarrhea/ abdominal pain. No fevers/chills. No lateralizing signs/symptoms. 12-[address] SIDDIQUI TODAY [facility] BEEN [facility]SULT[facility] BY HIM AM LABS INCREASE ACTIVITY SHELIA RN AND PT AND YO Patient had some chest pain earlier today started on nitro may need to be started on Imdur 12-03 SEEN BY [facility] NOT A SURGICAL CANDIDATE SEEN BY CARDIOLOGY- CLEARED FOR DC IMDUR ADDED SHELIA RN AND PT AND YO AND DR SIDDIQUI OF CARDIOLOGY DC TO HOME TODAY RETURN TO WORK NEXT WEEK Objective Vitals Vital Signs Date Time Temp Pulse Resp B/P (MAP) Pulse Ox O2 Delivery O2 Flow Rate FiO2 12/03/17 16:24 59 127/59 (81) 99 12/03/17 15:06 97.9 60 18 115/56 (75) 95 12/03/17 15:00 60 12/03/17 14:20 96 12/03/17 14:00 58 12/03/17 13:00 56 12/03/17 12:00 58 12/03/17 11:30 98.0 57 18 129/60 (83) 96 12/03/17 11:00 57 12/03/17 10:00 56 12/03/17 09:00 62 12/03/17 08:00 55 12/03/17 07:45 97.9 60 17 145/62 (89) 97 12/03/17 07:00 60 12/03/17 04:00 55 12/03/17 04:00 98.3 61 18 130/65 (86) 96 12/03/17 03:09 53 6/29/18 02:00 51 12/03/17 00:00 98.5 58 16 127/62 (83) 96 12/02/17 21:44 92 12/02/17 20:00 98.5 66 18 141/72 (95) 94 12/02/17 19:00 66 12/02/17 18:00 70 12/02/17 17:00 58 I/O 12/02/17 12/02/17 12/02/17 12/03/17 12/03/17 12/03/17 07:00 15:00 23:00 07:00 15:00 23:00 Intake Total 1000 ml 240 ml 420 ml 1000 ml Output Total 1100 ml 1200 ml Balance 1000 ml -860 ml -780 ml 1000 ml Intake Oral 240 ml 420 ml IV Total 1000 ml 1000 ml Output Urine Total 1100 ml 1200 ml # Voids 1 # Bowel Movements 1 Result Diagram: 12/03/17 0555 12/03/17 0555 Other Results Laboratory Tests Test 12/02/17 00:30 12/02/17 09:22 12/02/17 12:57 12/02/17 16:50 White Blood Count 9.6 TH/MM3 Red Blood Count 4.62 MIL/MM3 Hemoglobin 13.6 GM/DL Hematocrit 40.9 % Mean Corpuscular Volume 88.5 FL Mean Corpuscular Hemoglobin 29.5 PG Mean Corpuscular Hemoglobin Concent 33.3 % Red Cell Distribution Width 13.2 % Platelet Count 296 TH/MM3 Mean Platelet Volume 8.7 FL Neutrophils (%) (Auto) 58.3 % Lymphocytes (%) (Auto) 31.0 % Monocytes (%) (Auto) 7.6 % Eosinophils (%) (Auto) 2.6 % Basophils (%) (Auto) 0.5 % Neutrophils # (Auto) 5.6 TH/MM3 Lymphocytes # (Auto) 3.0 TH/MM3 Monocytes # (Auto) 0.7 TH/MM3 Eosinophils # (Auto) 0.2 TH/MM3 Basophils # (Auto) 0.0 TH/MM3 CBC Comment DIFF FINAL Differential Comment Prothrombin Time 9.8 SEC Prothromb Time International Ratio 1.0 RATIO Activated Partial Thromboplast Time 24.7 SEC 30.7 SEC 25.0 SEC Blood Urea Nitrogen 15 MG/DL Creatinine 0.70 MG/DL Random Glucose 245 MG/DL Total Protein 7.0 GM/DL Albumin 2.9 GM/DL Calcium Level 8.4 MG/DL Alkaline Phosphatase 84 U/L Aspartate Amino Transf (AST/SGOT) 17 U/L Alanine Aminotransferase (ALT/SGPT) 42 U/L Total Bilirubin 0.2 MG/DL Sodium Level 141 MEQ/L Potassium Level 3.7 MEQ/L Chloride Level 105 MEQ/L Carbon Dioxide Level 26.6 MEQ/L Anion Gap 9 MEQ/L Estimat Glomerular Filtration Rate 86 ML/MIN Total Creatine Kinase 89 U/L 68 U/L 68 U/L Troponin I 0.11 NG/ML 0.12 NG/ML 0.13 NG/ML Test 12/03/17 05:55 White Blood Count 10.8 TH/MM3 Red Blood Count 4.32 MIL/MM3 Hemoglobin 12.9 GM/DL Hematocrit 38.5 % Mean Corpuscular Volume 89.1 FL Mean Corpuscular Hemoglobin 29.8 PG Mean Corpuscular Hemoglobin Concent 33.4 % Red Cell Distribution Width 13.1 % Platelet Count 295 TH/MM3 Mean Platelet Volume 8.9 FL Neutrophils (%) (Auto) 87.1 % Lymphocytes (%) (Auto) 11.4 % Monocytes (%) (Auto) 1.3 % Eosinophils (%) (Auto) 0.0 % Basophils (%) (Auto) 0.2 % Neutrophils # (Auto) 9.4 TH/MM3 Lymphocytes # (Auto) 1.2 TH/MM3 Monocytes # (Auto) 0.1 TH/MM3 Eosinophils # (Auto) 0.0 TH/MM3 Basophils # (Auto) 0.0 TH/MM3 CBC Comment DIFF FINAL Differential Comment Blood Urea Nitrogen 15 MG/DL Creatinine 0.59 MG/DL Random Glucose 287 MG/DL Total Protein 6.7 GM/DL Albumin 2.8 GM/DL Calcium Level 7.7 MG/DL Phosphorus Level 2.9 MG/DL Magnesium Level 1.8 MG/DL Alkaline Phosphatase 104 U/L Aspartate Amino Transf (AST/SGOT) 54 U/L Alanine Aminotransferase (ALT/SGPT) 81 U/L Total Bilirubin 0.2 MG/DL Sodium Level 140 MEQ/L Potassium Level 4.2 MEQ/L Chloride Level 107 MEQ/L Carbon Dioxide Level 24.8 MEQ/L Anion Gap 8 MEQ/L Estimat Glomerular Filtration Rate 105 ML/MIN B-Type Natriuretic Peptide 298 PG/ML Triglycerides Level 128 MG/DL Cholesterol Level 196 MG/DL LDL Cholesterol 132 MG/DL HDL Cholesterol 38.2 MG/DL Cholesterol/HDL Ratio 5.13 RATIO Free Thyroxine 1.01 NG/DL Thyroid Stimulating Hormone 3rd Gen 0.517 uIU/ML Imaging Last Impressions Chest X-Ray 12/02/17 0027 Signed Impressions: CONCLUSION: No acute cardiopulmonary process. Objective Remarks GENERAL: Awake alert and oriented 3 talkative and cooperative SKIN: Warm and dry. Right groin is stable HEAD: Atraumatic. Normocephalic. EYES: Pupils equal and round. No scleral icterus. No injection or drainage. Extraocular muscles intact ENT: No nasal bleeding or discharge. Mucous membranes pink and moist. Tongue is midline NECK: Trachea midline. No JVD. Supple CARDIOVASCULAR: Regular rate and rhythm. S1-S2 no S3 or S4 RESPIRATORY: No accessory muscle use. Clear to auscultation. Breath sounds equal bilaterally. GASTROINTESTINAL: Abdomen soft, non-tender, nondistended. Hepatic and splenic margins not palpable. Obese MUSCULOSKELETAL: Extremities without clubbing, cyanosis, or edema. No obvious deformities. NEUROLOGICAL: Awake and alert. No obvious cranial nerve deficits. Motor grossly within normal limits. Five out of 5 muscle strength in the arms and legs. Normal speech. PSYCHIATRIC: Appropriate mood and affect; insight and judgment normal. Procedures 12/02/2017 PROCEDURE PERFORMED: Left heart catheterization, left ventriculography, coronary angiography, YANES angiography, saphenous vein angiography. INDICATIONS: Coronary artery disease, status post CABG, diabetes mellitus, [place] Cardiovascular [employer] class IV angina. PROCEDURE: The patient was brought to the cardiac catheterization laboratory, prepped and draped in the usual sterile fashion. 10 mL of 1% lidocaine was used to locally anesthetize the right common femoral artery. The 4-Guyanese sheath placed in the right common femoral artery. A 4-[place] JR4, JL4 and AR1 modified catheters were used to perform left and right coronary angiography, left ventriculography, saphenous vein angiography and YANES angiography. FINDINGS: The LV pressure is 180/19-20, 60%. The right coronary artery is nondominant, has a 95% proximal stenosis, reference vessel diameter 1-1.5 mm. There is a Y graft to a diagonal artery, which is widely patent. The [place] diagonal artery beyond the graft insertion site is a medium sized vessel 2.25 mm. No significant disease angiographically. The Y graft segment to the distal obtuse marginal vessel was widely patent. Marginal vessel beyond the graft insertion site is relatively small 1.5-2 mm. No significant obstructive disease. The graft fills the marginal vessel retrograde, where there is a 95% stenosis, then there is retrograde filling to a bifurcation filling a more medial branch of this marginal vessel, which is a 2.0 mm vessel that has no significant obstructive disease. Retrograde filling then goes to the distal AV groove left circumflex. There is no filling retrograde to the distal AV groove left circumflex. Antegrade, there is filling of the AV groove left circumflex to the crux, where there is a 95% stenosis just proximal to the initial segment of the left PDA. The left PDA then bifurcates just after this stenosis with a lateral branch, which is 0.5-1 mm vessel. No significant obstructive disease. There is a long segment of diffuse disease, probably up to 50-60%, reference vessel diameter of 1.5-2 mm. Then, the distal left PDA is probably 0.5 mm. No significant obstructive disease. The YANES to LAD is widely patent. There is mild to moderate narrowing in the ostium up to 30-40% angiographically. The [place] LAD beyond the graft insertion site is a 1.5-2 mm vessel. There is severe diffuse disease in the LAD versus some degree of anatomic tapering of the vessel. I do not see any focal stenosis, within the first 25 mm after the graft insertion site, the reference vessel diameter is about 2.25 mm and the remainder of the LAD is about 0.75-1 mm vessel with probably at least moderate relative disease up to 50-60% angiographically. The vein graft to the right is occluded at the ostium. The left main is heavily diseased diffusely, reference vessel diameter of 1.25 mm. LAD is occluded proximally. Left circumflex is occluded proximally. There is a small marginal vessel 0.5-1 mm in diameter coming off the proximal left circumflex. No significant obstructive disease. CONCLUSION: 1. 3 of 4 grafts patent. 2. Preserved left ventricular systolic function of 60%. 3. Non-ST elevation myocardial infarction, probably culprit severe disease in the marginal and AV groove left circumflex and left PDA, retrograde to the graft insertion site with no antegrade flow from the left main. 4. Severe 3-vessel coronary artery disease, right dominant system. 5. Diffuse small lumen diabetic coronary artery disease. RECOMMENDATION: Recommend medical management with optimal medical therapy. We will get a CT surgery consult; however, the left PDA is approximately a 0.75 mm vessel with diffuse disease. It does not appear to be optimal graft target due to its posterior location, small diameter. The LAD could potentially be stented, but it would probably require a full metal jacket within about 25 mm beyond the graft insertion site if there is diffuse disease, all the way down to the apex. Barry Siddiqui MD Medications and IVs Current Medications Heparin Sodium (Porcine) (Heparin Inj) 4,000 units ONCE ONCE IV Last administered on 12/02/17at 03:13; Start 12/02/17 at 02:15; Stop 12/02/17 at 02:16 ; Status DC Heparin Sodium/ Dextrose 250 ml @ 10 mls/hr TITRATE PRN IV Coagulation Management Last administered on 12/02/17at 03:15; Start 12/02/17 at 02:15; Stop 12/02/17 at 15:43; Status DC Nitroglycerin (Nitroglycerin 2% Oint) 1 inch ONCE ONCE TOPICAL Last administered on 12/02/17at 02:34; Start 12/02/17 at 02:15; Stop 12/02/17 at 15:43 ; Status DC Sodium Chloride 1,000 ml @ 100 mls/hr Q10H IV Last administered on 12/03/17at 01:30; Start 12/02/17 at 03:00 Sodium Chloride (NS Flush) 2 ml BID IV FLUSH Last administered on 12/02/17at 09: 30; Start 12/02/17 at 09:00; Stop 12/02/17 at 15:42; Status DC Sodium Chloride (NS Flush) 2 ml UNSCH PRN IV FLUSH FLUSH AFTER USING IV ACCESS ; Start 12/02/17 at 02:45; Stop 12/02/17 at 15:42; Status DC Aspirin (Aspirin) 325 mg DAILY PO Last administered on 12/02/17at 09:30; Start 12/02/17 at 09:00; Stop 12/02/17 at 14:01; Status DC Acetaminophen/ Hydrocodone Bitart ([place] 7.5-325 Mg) 1 tab Q4H PRN PO PAIN SCALE 1 TO 5 Last administered on 12/02/17at 05:07; Start 12/02/17 at 02:45 Morphine Sulfate (Morphine Inj) 5 mg Q3H PRN IV PUSH PAIN SCALE 6 TO 10 Last administered on 12/02/17at 21:17; Start 12/02/17 at 02:45 Dextrose (D50w (Vial) Inj) 50 ml UNSCH PRN IV PUSH HYPOGLYCEMIA-SEE COMMENTS; Start 12/02/17 at 02:45; Stop 12/02/17 at 14:01; Status DC Glucagon (Glucagon Inj) 1 mg UNSCH PRN OTHER HYPOGLYCEMIA-SEE COMMENTS; Start 12/02/17 at 02:45; Stop 12/02/17 at 14:01; Status DC Insulin Aspart (NovoLOG SUPPLEMENTAL SCALE) 1 ACHS SLIDING SCALE SQ ; Start at 08:00; Stop 12/02/17 at 14:01; Status DC Clonidine (Catapres) 0.1 mg Q4H PRN PO SBP>160, DBP>90; Start 12/02/17 at 13:45 Nitroglycerin (Nitroglycerin 2% Oint) 1 inch Q6HR TOPICAL Last administered on 12/02/17at 14:03; Start 12/02/17 at 13:45; Stop 12/02/17 at 15:43; Status DC Nitroglycerin (Nitrostat Sl) 0.4 mg Q5M PRN SL CHEST PAIN; Start 12/02/17 at 13 :45 Aspirin (Aspirin Chew) 81 mg DAILY CHEW Last administered on 12/03/17at 08:35; Start 12/03/17 at 09:00 Clopidogrel Bisulfate (Plavix) 75 mg HS PO Last administered on 12/02/17at 20:58 ; Start 12/02/17 at 21:00 Lisinopril (Prinivil) 20 mg DAILY PO Last administered on 12/03/17at 08:33; Start 12/02/17 at 14:15 Metoprolol Tartrate (Lopressor) 25 mg DAILY PO Last administered on 12/02/17at 14:25; Start 12/02/17 at 14:15; Stop 12/02/17 at 15:43; Status DC Dextrose (D50w (Vial) Inj) 50 ml UNSCH PRN IV PUSH HYPOGLYCEMIA-SEE COMMENTS; Start 12/02/17 at 13:45 Glucagon (Glucagon Inj) 1 mg UNSCH PRN OTHER HYPOGLYCEMIA-SEE COMMENTS; Start 12/02/17 at 13:45 Insulin Aspart (NovoLOG SUPPLEMENTAL SCALE) 1 ACHS SLIDING SCALE SQ Last administered on 12/03/17at 13:22; Start 12/02/17 at 17:00 Methylprednisolone Sodium Succinate (SoluMEDROL INJ) 125 mg NOW ONCE IV Last administered on 12/02/17at 14:20; Start 12/02/17 at 14:15; Stop 12/02/17 at 14:16 ; Status DC Heparin Sodium/ Sodium Chloride 1,000 ml @ As Directed STK-MED ONCE .ROUTE Last administered on 12/02/17at 14:41; Start 12/02/17 at 14:41; Stop 12/02/17 at 14:42; Status DC Midazolam HCl (Versed Inj) 2 mg STK-MED ONCE .ROUTE Last administered on at 15:03; Start 12/02/17 at 14:41; Stop 12/02/17 at 14:42; Status DC Fentanyl Citrate (fentaNYL INJ) 100 mcg STK-MED ONCE .ROUTE Last administered on 12/02/17at 15:04; Start 12/02/17 at 14:41; Stop 12/02/17 at 14:42; Status DC Diphenhydramine HCl (Benadryl Inj) 50 mg STK-MED ONCE .ROUTE Last administered on 12/02/17 14:47; Start 12/02/17 at 14:46; Stop 12/02/17 at 14:47; Status DC Famotidine (Pepcid Inj) 20 mg STK-MED ONCE .ROUTE Last administered on 14:46; Start 12/02/17 at 14:47; Stop 12/02/17 at 14:48; Status DC Lidocaine HCl (Xylocaine-Mpf 1% Inj) 30 ml STK-MED ONCE .ROUTE Last administered on 12/02/17 14:52; Start 12/02/17 at 14:52; Stop 12/02/17 at 14:53 ; Status DC Sodium Chloride (NS Flush) 2 ml BID IV FLUSH Last administered on 12/03/17at 08: 37; Start 12/02/17 at 21:00 Sodium Chloride (NS Flush) 2 ml UNSCH PRN IV FLUSH FLUSH AFTER USING IV ACCESS ; Start 12/02/17 at 15:45 Miscellaneous Information 1 ONCE ONCE XX ; Start 12/02/17 at 15:45; Stop at 15:47; Status DC Bacitracin (Bacitracin Oint Packet) 0.9 gm ONCE ONCE TOP ; Start 12/02/17 at 15 :45; Stop 12/02/17 at 15:47; Status DC Amlodipine Besylate (Norvasc) 10 mg ONCE ONCE PO Last administered on at 16:14; Start 12/02/17 at 15:45; Stop 12/02/17 at 15:47; Status DC Amlodipine Besylate (Norvasc) 10 mg DAILY PO Last administered on 12/03/17at 08: 37; Start 12/03/17 at 09:00 Nitroglycerin (Nitroglycerin 2% Oint) 2 inch Q6HR TOPICAL Last administered on 12/03/17at 13:23; Start 12/02/17 at 18:00; Stop 12/03/17 at 15:10; Status DC Metoprolol Tartrate (Lopressor) 50 mg Q8HR PO Last administered on 12/03/17at 15 :14; Start 12/02/17 at 22:00 Atorvastatin Calcium (Lipitor) 80 mg HS PO Last administered on 12/02/17at 20:58 ; Start 12/02/17 at 21:00 Iohexol (OMNIPAQUE 350 INJ (Oil Lease Operator)) 100 ml STK-MED ONCE OTHER ; Start at 17:14; Stop 12/02/17 at 17:15; Status DC Isosorbide Mononitrate (Imdur) 60 mg NOW ONCE PO Last administered on at 16:26; Start 12/03/17 at 15:15; Stop 12/03/17 at 15:16; Status DC Isosorbide Mononitrate (Imdur) 60 mg DAILY PO ; Start 12/04/17 at 09:00 A/P Assessment and Plan 1. NSTEMI/CAD EKG shows normal sinus rhythm with nonspecific ST-T wave changes without ST segment elevation or depression, personally reviewed Initial troponin 0 0.11 Heparin bolus and drip Cardiology consulted, appreciate recommendations--status post cardiac catheterization--cardiovascular surgery has been consult Continue aspirin and Plavix once medication reconciliation complete Had recurrent chest pain started on nitro may need to be placed on long-acting Imdur 2. Diabetes mellitus Holding home glipizide Sliding-scale insulin Monitor blood glucose 3. Hypertension/hyperlipidemia Continue home medications once reconciled MEDS ADJUSTED STARTED ON IMDUR CAN DC TO HOME TODAY FOLLOW UP PCP AND DR SIDDIQUI Discharge Planning DC TO HOME TODAY Paulino Dillard DO Dec 03, 2017 16:46
[2017-12-03] MEDS ORDERED: GLIP5TAB8 PO (16:49)
[2017-12-03] MEDS ORDERED: ATOR80TA45 PO (16:49)
[2017-12-03] MEDS ORDERED: LISI-515 PO (16:49)
[2017-12-03] MEDS ORDERED: HYDR12.57 PO (16:49)
[2017-12-03] MEDS ORDERED: METO-309 PO (16:49)
[2017-12-03] MEDS ORDERED: ASPI-516 CHEW (16:49)
[2017-12-03] MEDS ORDERED: PLAV75TA29 PO (16:49)
[2017-12-03] MEDS ORDERED: ISOS60TA PO (16:49)
[2017-12-03] MEDS ORDERED: NITR0.4S SL (16:49)
--- NOTE | 2017-12-03 16:52 | HHI.DS ---
Discharge Summary Admission Date Dec 02, 2017 at 02:20 Discharge Date: Dec 03, 2017 Admitting Diagnosis NSTEMI (1) Tobacco abuse ICD Code: Z72.0 - Tobacco abuse Diagnosis: Secondary Status: Acute (2) Hx of CABG ICD Code: Z95.1 - Presence of aortocoronary bypass graft Diagnosis: Principal Status: Acute (3) Hyperlipidemia ICD Code: E78.5 - Hyperlipidemia Diagnosis: Principal Status: Acute (4) DM (diabetes mellitus) ICD Code: E11.9 - DM (diabetes mellitus) Diagnosis: Principal Status: Acute (5) Chest pain ICD Code: R07.9 - Chest pain Diagnosis: Principal Status: Acute (6) CAD (coronary artery disease) ICD Code: I25.10 - CAD (coronary artery disease) Diagnosis: Principal Status: Acute (7) NSTEMI (non-ST elevated myocardial infarction) ICD Code: I21.4 - Non-ST elevation (NSTEMI) myocardial infarction Diagnosis: Principal Status: Acute Procedures 12/02/2017 PROCEDURE PERFORMED: Left heart catheterization, left ventriculography, coronary angiography, YANES angiography, saphenous vein angiography. INDICATIONS: Coronary artery disease, status post CABG, diabetes mellitus, [place] [employer] class IV angina. PROCEDURE: The patient was brought to the cardiac catheterization laboratory, prepped and draped in the usual sterile fashion. 10 mL of 1% lidocaine was used to locally anesthetize the right common femoral artery. The 4-Bangladeshi sheath placed in the right common femoral artery. A 4-Bangladeshi JR4, JL4 and AR1 modified catheters were used to perform left and right coronary angiography, left ventriculography, saphenous vein angiography and YANES angiography. FINDINGS: The LV pressure is 180/19-20, 60%. The right coronary artery is nondominant, has a 95% proximal stenosis, reference vessel diameter 1-1.5 mm. There is a Y graft to a diagonal artery, which is widely patent. The mary's igloo diagonal artery beyond the graft insertion site is a medium sized vessel 2.25 mm. No significant disease angiographically. The Y graft segment to the distal obtuse marginal vessel was widely patent. Marginal vessel beyond the graft insertion site is relatively small 1.5-2 mm. No significant obstructive disease. The graft fills the marginal vessel retrograde, where there is a 95% stenosis, then there is retrograde filling to a bifurcation filling a more medial branch of this marginal vessel, which is a 2.0 mm vessel that has no significant obstructive disease. Retrograde filling then goes to the distal AV groove left circumflex. There is no filling retrograde to the distal AV groove left circumflex. Antegrade, there is filling of the AV groove left circumflex to the crux, where there is a 95% stenosis just proximal to the initial segment of the left PDA. The left PDA then bifurcates just after this stenosis with a lateral branch, which is 0.5-1 mm vessel. No significant obstructive disease. There is a long segment of diffuse disease, probably up to 50-60%, reference vessel diameter of 1.5-2 mm. Then, the distal left PDA is probably 0.5 mm. No significant obstructive disease. The YANES to LAD is widely patent. There is mild to moderate narrowing in the ostium up to 30-40% angiographically. The mary's igloo LAD beyond the graft insertion site is a 1.5-2 mm vessel. There is severe diffuse disease in the LAD versus some degree of anatomic tapering of the vessel. I do not see any focal stenosis, within the first 25 mm after the graft insertion site, the reference vessel diameter is about 2.25 mm and the remainder of the LAD is about 0.75-1 mm vessel with probably at least moderate relative disease up to 50-60% angiographically. The vein graft to the right is occluded at the ostium. The left main is heavily diseased diffusely, reference vessel diameter of 1.25 mm. LAD is occluded proximally. Left circumflex is occluded proximally. There is a small marginal vessel 0.5-1 mm in diameter coming off the proximal left circumflex. No significant obstructive disease. CONCLUSION: 1. 3 of 4 grafts patent. 2. Preserved left ventricular systolic function of 60%. 3. Non-ST elevation myocardial infarction, probably culprit severe disease in the marginal and AV groove left circumflex and left PDA, retrograde to the graft insertion site with no antegrade flow from the left main. 4. Severe 3-vessel coronary artery disease, right dominant system. 5. Diffuse small lumen diabetic coronary artery disease. RECOMMENDATION: Recommend medical management with optimal medical therapy. We will get a CT surgery consult; however, the left PDA is approximately a 0.75 mm vessel with diffuse disease. It does not appear to be optimal graft target due to its posterior location, small diameter. The LAD could potentially be stented, but it would probably require a full metal jacket within about 25 mm beyond the graft insertion site if there is diffuse disease, all the way down to the apex. Barry Siddiqui MD Brief History - From Admission 80-year-old female with a past medical history significant for coronary artery disease, diabetes mellitus, hypertension and hyperlipidemia presents to the emergency department for evaluation of elevated troponin. The patient reports she has been feeling nauseated with left-sided chest pain that radiates down her left arm since Wednesday. She saw her primary care physician earlier yesterday who did an EKG and ordered lab work for her. The patient completed the lab work and then went to work when she was called by the nurse practitioner stating that her troponin was elevated that she needed to come to the emergency department for further evaluation. The patient continues to have chest pain that is worse with movement that radiates down the left arm. She denies any shortness of breath. Intermittent nausea. No vomiting/diarrhea/ abdominal pain. No fevers/chills. No lateralizing signs/symptoms. CBC/BMP: 12/03/17 0555 12/03/17 0555 Significant Findings Laboratory Tests Test 12/02/17 00:30 12/02/17 09:22 12/02/17 12:57 12/02/17 16:50 Random Glucose 245 MG/DL (74-106) Albumin 2.9 GM/DL (3.4-5.0) Calcium Level 8.4 MG/DL (8.5-10.1) Estimat Glomerular Filtration Rate 86 ML/MIN (>89) Troponin I 0.11 NG/ML (0.02-0.05) 0.12 NG/ML (0.02-0.05) 0.13 NG/ML (0.02-0.05) Activated Partial Thromboplast Time 30.7 SEC (24.3-30.1) Test 12/03/17 05:55 Neutrophils (%) (Auto) 87.1 % (16.0-70.0) Neutrophils # (Auto) 9.4 TH/MM3 (1.8-7.7) Random Glucose 287 MG/DL (74-106) Albumin 2.8 GM/DL (3.4-5.0) Calcium Level 7.7 MG/DL (8.5-10.1) Aspartate Amino Transf (AST/SGOT) 54 U/L (15-37) Alanine Aminotransferase (ALT/SGPT) 81 U/L (10-53) B-Type Natriuretic Peptide 298 PG/ML (0-100) LDL Cholesterol 132 MG/DL (0-99) HDL Cholesterol 38.2 MG/DL (40.0-60.0) Imaging Last Impressions Chest X-Ray 12/02/17 0027 Signed Impressions: CONCLUSION: No acute cardiopulmonary process. PE at Discharge GENERAL: Awake alert and oriented 3 talkative and cooperative SKIN: Warm and dry. Right groin is stable HEAD: Atraumatic. Normocephalic. EYES: Pupils equal and round. No scleral icterus. No injection or drainage. Extraocular muscles intact ENT: No nasal bleeding or discharge. Mucous membranes pink and moist. Tongue is midline NECK: Trachea midline. No JVD. Supple CARDIOVASCULAR: Regular rate and rhythm. S1-S2 no S3 or S4 RESPIRATORY: No accessory muscle use. Clear to auscultation. Breath sounds equal bilaterally. GASTROINTESTINAL: Abdomen soft, non-tender, nondistended. Hepatic and splenic margins not palpable. Obese MUSCULOSKELETAL: Extremities without clubbing, cyanosis, or edema. No obvious deformities. NEUROLOGICAL: Awake and alert. No obvious cranial nerve deficits. Motor grossly within normal limits. Five out of 5 muscle strength in the arms and legs. Normal speech. PSYCHIATRIC: Appropriate mood and affect; insight and judgment normal. Hospital Course 80-year-old female with a past medical history significant for coronary artery disease, diabetes mellitus, hypertension and hyperlipidemia presents to the emergency department for evaluation of elevated troponin. The patient reports she has been feeling nauseated with left-sided chest pain that radiates down her left arm since Wednesday. She saw her primary care physician earlier yesterday who did an EKG and ordered lab work for her. The patient completed the lab work and then went to work when she was called by the nurse practitioner stating that her troponin was elevated that she needed to come to the emergency department for further evaluation. The patient continues to have chest pain that is worse with movement that radiates down the left arm. She denies any shortness of breath. Intermittent nausea. No vomiting/diarrhea/ abdominal pain. No fevers/chills. No lateralizing signs/symptoms. [address] C[address] DR SIDDIQUI TODAY [facility] BEEN CONSULTED BY HIM AM LABS INCREASE ACTIVITY DW RN AND PT AND CM Patient had some chest pain earlier today started on nitro may need to be started on Imdur 12-03 SEEN BY [facility] NOT A SURGICAL CANDIDATE SEEN BY CARDIOLOGY- CLEARED FOR DC IMDUR ADDED DW RN AND PT AND YO AND DR SIDDIQUI OF CARDIOLOGY DC TO HOME TODAY RETURN TO WORK NEXT WEEK Pt Condition on Discharge: Good Discharge Disposition: Discharge Home Discharge Time: > 30 minutes Discharge Instructions DIET: Follow Instructions for: Heart Healthy Diet, Diabetic Diet Speech Therapy-Diet Recommends: Regular Activities you can perform: Regular-No Restrictions, Weight Bearing as Nisha Follow up Referrals: Cardiology - 2 Weeks with Barry Siddiqui MD PCP Follow-up - 3-5 Days with Cedrick Rodríguez Jr., MD ([facility]) Vascular Surgery - 4 Weeks with Pedro Pablo Augustin MD New Medications: Atorvastatin (Atorvastatin) 80 Mg Tab 80 MG PO HS for Cholesterol Management, #30 TAB Isosorbide Mononitrate ER (Isosorbide Mononitrate ER) 60 Mg Tab 60 MG PO DAILY for Chest Pain, #30 TAB Metoprolol Tartrate (Lopressor) 50 Mg Tab 50 MG PO Q8HR for Regulate Heart Beat, #90 TAB Nitroglycerin SL (Nitrostat SL) 0.4 Mg Subl 0.4 MG SL Q5M PRN for CHEST PAIN, #100 TAB Continued Medications: Aspirin (Aspirin) 81 Mg Chew 81 MG CHEW DAILY for Blood Clot Prevention, #30 TAB 0 Refills (This prescription has been renewed) Clopidogrel (Plavix) 75 Mg Tab 75 MG PO HS for Blood Clot Prevention, #30 TAB 0 Refills (This prescription has been renewed) Glipizide (Glipizide) 5 Mg Tab 5 MG PO BIDAC for Blood Sugar Management, #60 TAB 0 Refills (This prescription has been renewed) Take 30 minutes before a meal Hydrochlorothiazide (Hydrochlorothiazide) 12.5 Mg Cap 12.5 MG PO DAILY for Blood Pressure Management, #30 CAP 0 Refills (This prescription has been renewed) Lisinopril (Lisinopril) 20 Mg Tab 20 MG PO DAILY for Blood Pressure Management, #30 TAB 0 Refills (This prescription has been renewed) Discontinued Medications: Metoprolol Tartrate (Metoprolol Tartrate) 25 Mg Tab 25 MG PO DAILY, #30 TAB 0 Refills Paulino Dillard DO Dec 03, 2017 16:51
[2017-12-03 17:02] LABS: HEMOGLOBIN A1C 10.6 % (4.3-6.0)
[2017-12-04] MEDS ORDERED: ISOSORBIDE MONONITRATE 60 MG CR TAB (IMDUR) PO SCH (09:00)
== END 2017-12-03 17:32 | disposition home or self-care (01) | DRG 282 ==
LOC: NEPC 23:09 → NEDA 12-02 02:20 → HCIS 12-02 04:17
PROVIDERS: ADMIT Hospitalist; ATTEND Hospitalist
PROC: 4A023N7 Measurement of Cardiac Sampling and Pressure, Left Heart, Percutaneous Approach (ICD-10-PCS; principal; 2017-12-02)
PROC: B2151ZZ Fluoroscopy of Left Heart using Low Osmolar Contrast (ICD-10-PCS; 2017-12-02)
PROC: B2111ZZ Fluoroscopy of Multiple Coronary Arteries using Low Osmolar Contrast (ICD-10-PCS; 2017-12-02)
PROC: B2131ZZ Fluoroscopy of Multiple Coronary Artery Bypass Grafts using Low Osmolar Contrast (ICD-10-PCS; 2017-12-02)
DX: I21.4 Non-ST elevation (NSTEMI) myocardial infarction (principal); E11.9 Type 2 diabetes mellitus without complications; Z95.1 Presence of aortocoronary bypass graft; I10 Essential (primary) hypertension; E78.5 Hyperlipidemia, unspecified; I25.118 Atherosclerotic heart disease of native coronary artery with other forms of angina pectoris; Z79.84 Long term (current) use of oral hypoglycemic drugs; Z79.82 Long term (current) use of aspirin; Z79.02 Long term (current) use of antithrombotics/antiplatelets; Z72.0 Tobacco use; Z86.73 Personal history of transient ischemic attack (TIA), and cerebral infarction without residual deficits; Z88.8 Allergy status to other drugs, medicaments and biological substances; Z88.5 Allergy status to narcotic agent; Z91.013 Allergy to seafood
CPT/HCPCS: 71045; 80053; 80061; 82550; 82948; 83036; 83735; 83880; 84100; 84439; 84443; 84484; 85002; 85025; 85610; 85730; 93005; 93306; 93459; 99152; 99153; 99285; C1769; C1893; J1200; J1644; J1815; J2250; J2270; J2930; J3010; J7030; Q9967